=== PATIENT | female | born 1980 | race Caucasian/White ===

== ENCOUNTER 2019-10-27 07:46 | Outpatient (CLI) | payer BC, SELFPAY ==
--- NOTE | ~2019-10-27 | US_ITS ---
US right upper quadrant INDICATION: Right upper quadrant pain, nausea and bloating PROCEDURE: Realtime right upper abdominal ultrasound. COMPARISON: 09/28/2005 FINDINGS: The pancreas is normal without focal mass or pancreatic ductal dilation. Liver echotexture is increased, consistent with fatty infiltration. There is normal directional flow in the portal ve in. The gallbladder is normal without stones, gallbladder wall thickening or pericholecystic fluid. Comm on bile duct measures 3 mm. No sonographic Coe's sign. IMPRESSION: 1: Fatty infiltration of the liver. Reviewed, dictated and finalized at location A.
== END 2019-10-27 07:47 | disposition home or self-care (01) ==
PROVIDERS: PCP Nurse Practitioner Family; Visit Provider Internal Medicine Endocrinology, Diabetes & Metabolism
DX: R10.11 Right upper quadrant pain (principal); R11.0 Nausea; K76.0 Fatty (change of) liver, not elsewhere classified
CPT/HCPCS: 76705

== ENCOUNTER 2019-11-17 08:14 | Outpatient (CLI) | payer BC, SELFPAY ==
--- NOTE | ~2019-11-17 | NM_ITS ---
NM hepatobiliary w pharm DATE: 11/17/2019 13:00 INDICATION: Right upper quadrant abdominal pain TECHNIQUE: Serial images of the abdomen up to 60 minutes after intravenous injection of 4.6 mm 99M te chnetium Choletec. 30 minute gallbladder ejection fraction after intravenous injection of 1.9 mcg Kin evac. COMPARISON: 10/27/2019 right upper quadrant abdominal ultrasound examination FINDINGS: Activity is noted within the gallbladder and bile ducts within 15 minutes. The 30 minute ga llbladder ejection fraction measures 91%. IMPRESSION: Normal examination Reviewed, dictated and finalized at Location A. Reviewed, dictated and finalized at location A. IMPRESSION: Normal examination
== END 2019-11-17 08:15 | disposition home or self-care (01) ==
PROVIDERS: PCP Nurse Practitioner Family; Visit Provider Nurse Practitioner Family
DX: R10.11 Right upper quadrant pain (principal)
CPT/HCPCS: 78227; A9537; J2805

== ENCOUNTER 2021-01-10 17:20 | Outpatient (CLI) | payer BC, SELFPAY ==
--- NOTE | ~2021-01-10 | MM_ITS ---
EXAMINATION: MM screening tamika BI w quintin HISTORY: Screening mammogram TECHNIQUE: Craniocaudal and mediolateral oblique 3-D tomosynthesis images were obtained and synthetic 2-D images were generated. CAD analysis was submitted and interpreted. COMPARISON: 11/18/2018, 10/30/2018 BREAST PARENCHYMAL COMPOSITION: The breasts are heterogeneously dense, which may obscure small masses . FINDINGS: Waxing and waning bilateral breast masses are consistent with cysts. There is no evidence o f suspicious mass, calcification, or architectural distortion to suggest malignancy in either breast. There has been no suspicious interval change. IMPRESSION: 1. No mammographic evidence of malignancy. 2. Recommend routine screening mammography in one year. BI-RADS Category 2: Benign finding(s). Reviewed, dictated and finalized at location A.
== END 2021-01-10 17:21 | disposition home or self-care (01) ==
LOC: ANHIMG 17:24
PROVIDERS: PCP Nurse Practitioner Family; Visit Provider Obstetrics & Gynecology
DX: Z12.31 Encounter for screening mammogram for malignant neoplasm of breast (principal)
CPT/HCPCS: 77063; 77067

== ENCOUNTER → 2021-01-10 17:42 | Outpatient (CLI) | payer BC, SELFPAY ==
--- NOTE | ~2021-01-10 | US_ITS ---
EXAMINATION: US thyroid DATE: 01/10/2021 17:59 INDICATION: Goiter. TECHNIQUE: Multiple ultrasound images of the thyroid were obtained. COMPARISON: Thyroid ultrasound 02/01/2019 FINDINGS: The right thyroid lobe measures 4.2 x 1.1 x 1.1 cm. The left thyroid lobe measures 3.8 x 0.8 x 1.2 c m. There is normal echotexture and echogenicity throughout the thyroid gland. No discrete nodules id entified. Normal vascular flow is present. IMPRESSION: 1. Normal thyroid. Reviewed, dictated and finalized at location A. IMPRESSION: 1. Normal thyroid.
== END ==
PROVIDERS: Visit Provider Internal Medicine Endocrinology, Diabetes & Metabolism
DX: E04.9 Nontoxic goiter, unspecified (principal)
CPT/HCPCS: 76536

== ENCOUNTER 2021-03-31 16:52 | Emergency (ER) | payer BC, SELFPAY ==
[2021-03-31 17:01] VITALS: BP 113/76; PULSE 60; RESP 20; TEMP 36.4; O2SAT 99
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
[2021-03-31 17:50] VITALS: PULSE 60; RESP 20; O2SAT 99
[2021-03-31] MEDS: ALBUTEROL SULFATE NEB 2.5 MG/3 ML INH INHALATION (17:52)
[2021-03-31] MEDS: IPRATROPIUM BR 0.02% INH SOLN 0.5 MG/2.5 ML VIAL INHALATION (17:52)
[2021-03-31 18:20] VITALS: PULSE 74; RESP 19; O2SAT 100
== END 2021-03-31 18:38 | disposition home or self-care (01) ==
PROVIDERS: Emergency Provider Nurse Practitioner; PCP Nurse Practitioner Family
DX: J45.901 Unspecified asthma with (acute) exacerbation (principal); Z87.891 Personal history of nicotine dependence
CPT/HCPCS: 94640; 99214; G0463

== ENCOUNTER → 2021-07-11 01:10 | Outpatient (CLI) | payer BC, SELFPAY ==
[2021-07-11 21:03] LABS: SARS-CoV-2 RNA PCR Negative
== END ==
PROVIDERS: PCP Nurse Practitioner Family; Visit Provider Nurse Practitioner Family
DX: J32.9 Chronic sinusitis, unspecified (principal); Z20.822 Contact with and (suspected) exposure to COVID-19
CPT/HCPCS: C9803; U0003; U0005

== ENCOUNTER 2021-10-15 18:32 | Emergency (ER) | payer BC, SELFPAY ==
--- NOTE | ~2021-10-15 | XR_ITS ---
EXAM: XR abdomen/kub 1V HISTORY: R UVJ stone on CT,RT LOWER BACK PAIN,HX STONES COMPARISON: CT abdomen and pelvis, same date. FINDINGS: Lung bases clear. Normal bowel gas pattern. No organomegaly. Surgical change in the right lower quadrant. Tubal ligation. The previously reported 5 mm right UVJ stone actually appears to repr esent 2 smaller 2 and 3 mm stones that are unchanged in position. IMPRESSION: Stable right UVJ stones. Reviewed, dictated and finalized at location K. IMPRESSION: Stable right UVJ stones.
--- NOTE | ~2021-10-15 | CT_ITS ---
EXAMINATION: CT abdomen pelvis wo con DATE: 10/15/2021 19:54 INDICATION: R flank pain hx of ureteral stone TECHNIQUE: Computed tomography (CT) of the abdomen and pelvis was performed without intravenous contr ast. The dose-length product was 288.60 mGy-cm. COMPARISON: None FINDINGS: Lower thorax: Unremarkable. Liver: Normal. Biliary/Gallbladder: Gallbladder is normal. No bile duct dilation. Spleen: Normal. Pancreas: No mass or duct dilation. Adrenals:No mass. Kidneys: Mild right perirenal and periureteral inflammatory change. Mild right hydronephrosis. Puncta te left midpole nonobstructing calculus. No renal mass. GI tract: No small or large bowel dilation. Appendix not visualized. Mesentery/Peritoneum: No ascites, mass, or free air. Retroperitoneum: No mass. Pelvis: 5 mm stone at the right UVJ. 3.4 cm right ovarian cystic lesion, likely benign cyst at requir es no additional follow-up. Otherwise the pelvic organs are within normal limits. Bones/Soft Tissues: Soft tissues and body wall unremarkable. No acute osseous finding. Additional Findings: None. IMPRESSION: 5 mm right UVJ stone causing mild obstructive uropathy. Reviewed, dictated and finalized at location K.
[2021-10-15 18:32] VITALS: BP 154/96; PULSE 92; RESP 18; TEMP 36.3; O2SAT 99
[2021-10-15 19:22] LABS: Basophils Percent Auto 0.4 % (0.2-1.2); Eosinophils Absolute Auto 0.2 K/mm3 (0-0.3); Eosinophils Percent Auto 2.2 % (0-4.4); Hematocrit 36.6 % (37.0-47.0); Hemoglobin 11.7 g/dL (12.0-15.0); Immature Granulocyte Absolute 0.02 K/mm3 (0.00-0.031); Immature Granulocyte Percent A 0.3 % (0-0.5); Lymphocytes Absolute Auto 1.85 K/mm3 (0.9-3.2); Lymphocytes Percent Auto 25.9 % (18.3-44.2); Mean Corpuscular Hemoglobin 28.7 pg (26-34); Mean Corpuscular Volume 89.7 fl (80-100); Mean Platelet Volume 10.5 fl (7.4-10.4); Monocytes Absolute Auto 0.6 K/mm3 (0.1-0.6); Neutrophils Absolute Auto 4.5 K/mm3 (1.3-6.7); Neutrophils Percent Auto 63.2 % (45.5-73.1); Platelet Count Result 245 k/mm3 (150-375); Red Blood Count 4.08 M/mm3 (4.2-5.4); Red Cell Distribution Width 13.6 % (11.5-14.5); White Blood Count 7.2 K/mm3 (4.5-10.0)
--- NOTE | 2021-10-15 19:22 | PC.NURSE ---
Report received from Tiffanie RN and care of pt assumed at this time.
[2021-10-15 19:23] VITALS: BP 128/93; PULSE 83; RESP 16; O2SAT 100
[2021-10-15 19:23] LABS: Appearance Urine Cloudy (Clear); Bilirubin Urine Negative (Negative); Blood Urine 1+ (Negative); Color Urine Yellow (Yellow); Glucose Urine UA Negative (Negative); Ketones Urine Negative (Negative); Leukocyte Esterase Ur Negative LEU/UL (Negative); Nitrate Urine Negative (Negative); Protein Urine Trace mg/dL (Negative); Specific Grav Ur 1.025 (1.001-1.035)
[2021-10-15 19:28] LABS: Add Urine Microscopic? YES; Bacteria Urine Trace /hpf; Mucus Urine Rare /lpf; RBC Urine 21-50 /hpf (0-2); Squamous Epithelial Cell Urine Many /hpf (Few); WBC Urine 0-3 /hpf
--- NOTE | 2021-10-15 19:29 | ED.FEMALEGU ---
HPI - Female Genitourinary General Chief complaint: Urogenital-Female Stated complaint: possible kidney stones Time Seen by Provider: 10/15/21 18:42 Source: patient History of Present Illness HPI Narrative: Patient presents with concern for kidney stone. Patient ports a history of kidney stone which was passed with assistance of a stent approximately 20 years ago. Yesterday she noted right-sided back pain which was rating to her abdomen she is now having increasing pressure and her pelvis. She also reports urinary urgency but is unable to urinate. Denies any pain with urination or increased urinary frequency. There are no clear aggravating or alleviating factors for her symptoms. She denies any fevers. Related Data Home Medications Medication Instructions Recorded Confirmed Claritin 10 mg PO HS 05/26/19 Praluent Pen 150 mg PO MONTHLY 05/26/19 albuterol sulfate [ProAir HFA] 2 inh INHALATION PRN PRN 05/26/19 03/31/21 cholecalciferol (vitamin D3) 1,000 unit PO HS 05/26/19 03/31/21 [Vitamin D3] citalopram [Celexa] 40 mg PO HS 05/26/19 03/31/21 lisinopril 2.5 mg PO HS 05/26/19 03/31/21 metformin 500 mg PO HS 05/26/19 03/31/21 omega 5-tjc-dfx-fish oil [Fish Oil] 1,400 cap PO HS 05/26/19 03/31/21 topiramate [Topamax] 25 mg PO HS 05/26/19 03/31/21 zolpidem [Ambien] 10 mg PO HS 05/26/19 03/31/21 buspirone mg 03/31/21 erenumab-aooe [Aimovig 140 mg SUBCUT DIRECTED 03/31/21 03/31/21 Autoinjector] pantoprazole 40 mg PO DAILY 03/31/21 03/31/21 spironolactone 50 mg PO DAILY 03/31/21 03/31/21 valacyclovir 500 mg PO DIRECTED 03/31/21 03/31/21 Allergies Allergy/AdvReac Type Severity Reaction Status Date / Time codeine Allergy Intermediate Vomiting Verified 10/15/21 19:24 hydrocodone Allergy Intermediate Vomiting Verified 10/15/21 19:24 Sulfa (Sulfonamide Allergy Mild Hives Verified 10/15/21 19:24 Antibiotics) sulfanilamide Allergy Unknown Hives Verified 10/15/21 19:24 Review of Systems Review of Systems: CONSTITUTIONAL: Denies fever, chills, or sweats. EYES: Denies visual changes, redness, or discharge. ENT: Denies rhinorrhea, congestion, sore throat, or otalgia. CARDIOVASCULAR: Denies chest pain, palpitations, or edema. RESPIRATORY: Denies cough or dyspnea. GASTROINTESTINAL: Denies nausea, vomiting, or diarrhea. GENITOURINARY: Denies dysuria or hematuria. SKIN: Denies rash or itching. MUSCULOSKELETAL: Denies joint pain, or myalgia. NEUROLOGIC: Denies headache, numbness, dizziness, or weakness. PSYCHIATRIC: Denies anxiety or depression. All systems reviewed & are unremarkable except as noted in HPI and below PMFSH Past Medical History Medical History Asthma Environmental allergies Family History Family History Father Family history of elevated blood lipids Mother Family history of elevated blood lipids Other Diabetes mellitus Family history of congestive heart failure Family history of lung cancer Family history of malignant neoplasm of urinary bladder Family history of thyroid disease Social History Social History Smoking status: Former smoker Smoking end date: 07/01/08 Alcohol intake: current Exam Narrative: GENERAL: Well-appearing, well-nourished, and in no acute distress. HEAD: Normocephalic, atraumatic. EYES: PERRLA and EOMI. ENT: Nares clear, no rhinorrhea or epistaxis. Mucous membranes moist. NECK: Supple. No masses. No JVD ABDOMEN: Soft, nontender, nondistended EXTREMITIES: Normal range of motion. No edema. SKIN: Warm, dry, no rash. NEURO: No focal deficits. Alert and oriented x3. PSYCH: Normal mood and affect. Course Reevaluation(s) Reevaluation #1: Discussed with urology who will assist with outpatient valuation of the patient. Results and plan reviewed with patient. Patient is comfortable with the outpat
[2021-10-15 19:31] LABS: Alanine Aminotransferase 21 U/L (4-35); Albumin Level 4.2 g/dL (3.5-5.1); Alkaline Phosphatase 63 U/L (38-126); Anion Gap 9 mmol/L (8-16); Aspartate Amino Transferase 28 U/L (14-36); Bilirubin,Total 0.4 mg/dL (0.2-1.3); Blood Urea Nitrogen 13 mg/dL (7-17); Carbon Dioxide 27 mmol/L (22-30); Chloride 104 mmol/L (98-107); Estimated CRCL calculation 53 ml/min; Estimated Glomerular Filt Rate 49; Glucose 122 mg/dL (65-110); Potassium 3.8 mmol/L (3.4-5.0); Sodium 140 mmol/L (137-145)
[2021-10-15 19:35] LABS: Urine Pregnancy Test Negative
[2021-10-15 19:36] LABS: Pregnancy On Board Control Positive
--- NOTE | 2021-10-15 19:46 | PC.NURSE ---
BELL received from Dr. Burris for PO Tylenol instead of IV.
[2021-10-15] MEDS: ACETAMINOPHEN 500 MG TABLET 1000 MG PO (19:58)
[2021-10-15] MEDS: KETOROLAC 30 MG/ML VIAL (*BKC) IM (21:04)
== END 2021-10-15 21:08 | disposition home or self-care (01) ==
PROVIDERS: Emergency Provider Emergency Medicine; PCP Nurse Practitioner Family
DX: N13.9 Obstructive and reflux uropathy, unspecified (principal); N20.1 Calculus of ureter; J45.909 Unspecified asthma, uncomplicated; Z79.84 Long term (current) use of oral hypoglycemic drugs; Z87.891 Personal history of nicotine dependence
CPT/HCPCS: 36415; 74018; 74176; 80053; 81001; 81025; 85025; 96372; 99284; A9270; J1885

== ENCOUNTER → 2021-10-20 13:59 | Outpatient (CLI) | payer BC, SELFPAY ==
--- NOTE | ~2021-10-20 | XR_ITS ---
EXAMINATION: XR abdomen/kub 1V INDICATION: Right ureteral stone TECHNIQUE: Supine views of the abdomen were obtained on 2 radiographs. COMPARISON: 10/15/2021 FINDINGS: The previously described right ureterovesicular junction stone is no longer identified. No urolithiasis is seen. The bowel gas pattern is normal. The visualized lung bases are clear. IMPRESSION: 1. Interval treatment or passage of the previously described right ureterovesicular junction stones. Reviewed, dictated and finalized at location F. IMPRESSION: 1. Interval treatment or passage of the previously described right ureterovesic ular junction stones.
== END ==
PROVIDERS: PCP Urology; Visit Provider Urology
DX: N20.1 Calculus of ureter (principal)
CPT/HCPCS: 74018

== ENCOUNTER 2021-11-30 08:09 | Outpatient (CLI) | payer BC, SELFPAY ==
--- NOTE | ~2021-11-30 | US_ITS ---
US retroperitoneal comp 11/30/2021 08:47 Procedure: Realtime transabdominal ultrasound of the kidneys and bladder. Indication: Right ureteral stone Comparison: KUB dated 10/20/2021 Findings: Renal echotexture is normal bilaterally without hydronephrosis, contour deforming mass or r enal calculus. The right kidney measures 10.6 cm and left kidney measures 10.3 cm. Bladder within no rmal limits. Impression: 1: Unremarkable renal ultrasound. No stones, masses or hydronephrosis. Reviewed, dictated and finalized at location A. Impression: 1: Unremarkable renal ultrasound. No stones, masses or hydronephrosis.
== END 2021-11-30 08:10 | disposition home or self-care (01) ==
PROVIDERS: PCP Urology; Visit Provider Urology
DX: N20.1 Calculus of ureter (principal)
CPT/HCPCS: 76770

== ENCOUNTER 2022-01-31 08:08 | Outpatient (CLI) | payer BC, SELFPAY ==
--- NOTE | ~2022-01-31 | MM_ITS ---
EXAMINATION: MM screening tamika BI w quintin HISTORY: Screening TECHNIQUE: Craniocaudal and mediolateral oblique 3-D tomosynthesis images were obtained and synthetic 2-D images were generated. CAD analysis was submitted and interpreted. COMPARISON: Comparison to multiple prior studies sequentially, with oldest reviewed study dated 08/2018. BREAST PARENCHYMAL COMPOSITION: The breasts are heterogenously dense, which may obscure small masses FINDINGS: There are developing asymmetries in the upper outer quadrant of the left breast which are o bscured by dense fibroglandular tissue. The right breast is stable without evidence for malignancy. IMPRESSION: 1. Developing left breast asymmetries. 2. Additional mammographic views and possible breast ultrasound are recommended. BI-RADS Category 0: Incomplete: Needs additional imaging evaluation. Reviewed, dictated and finalized at location A. IMPRESSION: 1. Developing left breast asymmetries. 2. Additional mammographic views and possible breast ultrasound are recommended . BI-RADS Category 0: Incomplete: Needs additional imaging evaluation.
== END 2022-01-31 08:09 | disposition home or self-care (01) ==
PROVIDERS: PCP Nurse Practitioner Family; Visit Provider Pediatrics
DX: Z12.31 Encounter for screening mammogram for malignant neoplasm of breast (principal); R92.8 Other abnormal and inconclusive findings on diagnostic imaging of breast
CPT/HCPCS: 77063; 77067

== ENCOUNTER → 2022-02-14 08:45 | Outpatient (CLI) | payer BC, SELFPAY ==
--- NOTE | ~2022-02-14 | MMUS_ITS ---
EXAMINATION: MM diagnostic tamika LT w quintin, US breast LT limited HISTORY: Developing left upper outer quadrant mammographic asymmetry is reported on 01/31/2022 screenin g mammogram examination TECHNIQUE: Additional 3-D tomosynthesis images of the left breast were performed and synthetic 2-D im ages were generated. CAD analysis was submitted and interpreted. High resolution breast ultrasound wa s performed. COMPARISON: None FINDINGS: MAMMOGRAPHIC FINDINGS: Occasional low-density circumscribed benign-appearing 1 cm smaller masses are noted. Due to heterogen eously dense stroma of the breasts small masses cannot be excluded. No apparent suspicious mass or ar chitectural distortion, malignant calcification, skin thickening or retraction is evident. ULTRASOUND: No suspicious solid lesion or shadowing is evident. 12:00 2.5 cm from nipple: 2.4 x 4.3 mm circumscribed sonolucency consistent with small cyst 1:00 6 cm from nipple: 4.7 x 3.3 mm sonolucency with through transmission consistent with simple cyst 1:00 6 cm from nipple: Parallel circumscribed sonolucency measuring 4.3 x 10 mm, consistent with cyst 2:00 7 cm from nipple: 9 x 12 mm circumscribed hypoechoic lesion without internal vascularity or susp icious shadowing, probably benign 2:00 7 cm from nipple: 3.5 x 6.3 mm circumscribed parallel benign-appearing lesion 2:00 7 cm from nipple: Parallel circumscribed sonolucency measuring 2.5 x 6.8 x 8.3 mm, consistent wi th simple cyst 2:00 5 cm from nipple: Parallel circumscribed 5.8 x 9.8 x 9.5 mm hypoechoic lesion without internal v ascularity or posterior shadowing, benign in appearance 3:00 5 cm from nipple: 3.2 x 4.8 mm cyst 4:00 3 cm from nipple: Parallel circumscribed 3.8 x 5.5 mm hypoechoic lesion without internal vascula rity or suspicious shadowing, benign in appearance IMPRESSION: 1. Probable benign findings 2. 6 month left breast ultrasound follow-up is recommended BI-RADS category 3, probably benign findings. Reviewed, dictated and finalized at location A. IMPRESSION: 1. Probable benign findings 2. 6 month left breast ultrasound follow-up is recommended BI-RADS category 3, probably benign findings.
== END ==
PROVIDERS: PCP Obstetrics & Gynecology; Visit Provider Obstetrics & Gynecology
DX: R92.8 Other abnormal and inconclusive findings on diagnostic imaging of breast (principal); N60.02 Solitary cyst of left breast; N63.21 Unspecified lump in the left breast, upper outer quadrant
CPT/HCPCS: 76642; 77061; 77065; G0279

== ENCOUNTER → 2022-08-16 07:37 | Outpatient (CLI) | payer BC, SELFPAY ==
--- NOTE | ~2022-08-16 | US_ITS ---
US breast LT limited DATE: 08/16/2022 08:44 INDICATION: Six-month follow-up of probable benign findings TECHNIQUE: Real-time imaging and color flow imaging of upper outer and lower-outer quadrants of left breast COMPARISON: 02/14/2022 Limited left breast ultrasound FINDINGS: 12:00 2.5 cm from nipple prior to 0.4 x 4.3 mm cyst has resolved since 02/14/2022. 1:00 6 cm from nipple: Circumscribed sonolucency with single septation measuring 6 x 11 x 13 x 5 mm, consistent with benign septated cyst 2:00 7 cm from nipple: 4.7 x 11 x 6 mm multi septated cyst circumscribed cyst or transmission, with n o internal vascularity 2:00 7 cm from nipple: Circumscribed 8 x 13 x 9 mm sonolucency without internal vascularity or blind teacher ior shadowing, consistent with simple cyst 2:00 5 cm from nipple: Parallel circumscribed sonolucency measuring 2.6 x 7.4 x 9 mm, consistent with small cyst 2:00 5 cm from nipple: 5 x 9 x 8.4 mm circumscribed hypoechoic lesion without internal vascularity or posterior shadowing, benign in appearance 3:00 6 cm from nipple: Parallel circumscribed oval 5 x 8.3 x 10 mm multi septated cyst with through t ransmission posterior enhancement, no internal vascularity, benign in appearance 3:00 6 cm from nipple: 2 x 3.8 mm sonolucency with through transmission consistent with small cyst 4:00 3 cm from nipple: Parallel circumscribed 2.6 x 5.7 x 5.2 mm hypoechoic lesion without internal v ascularity or posterior shadowing, benign in appearance IMPRESSION: BI-RADS Category 2: Benign findings Recommendation: Routine annual mammographic screening Reviewed, dictated and finalized at Location A. Reviewed, dictated and finalized at location A. [employer]
== END ==
PROVIDERS: PCP Nurse Practitioner Family; Visit Provider Obstetrics & Gynecology
DX: R92.8 Other abnormal and inconclusive findings on diagnostic imaging of breast (principal)
CPT/HCPCS: 76642

== ENCOUNTER 2024-04-06 08:14 | Emergency (ER) | payer BC, SELFPAY ==
--- NOTE | 2024-04-06 08:18 | ED.HA ---
HPI - Headache General Chief Complaint: Headache Stated Complaint: Headache Time Seen by Provider: 04/06/24 08:17 Source: patient Mode of arrival: ambulatory Limitations: no limitations History of Present Illness HPI Narrative: Sara is a 44-year-old female patient presenting to the clinic today with complaints of a migraine headache x1 day. She reports that she took her migraine medicine yesterday and that did not relieve her headache. She is reporting associated photosensitivity and nausea with vomiting. Has vomited 6 times. States the pain is all over head and throbbing. Currently rates her pain 10/10. Not taken any medications this morning for her migraine headache. History of migraine headaches in the past. Denies any visual changes, chest pain, shortness of breath, or dizziness. Related Data Home Medications Medication Instructions Recorded Confirmed Claritin 10 mg PO HS 05/26/19 Praluent Pen 150 mg PO MONTHLY 05/26/19 albuterol sulfate 90 mcg/actuation 2 inh inhalation PRN PRN Shortness 05/26/19 03/31/21 aerosol inhaler (ProAir HFA) Of Breath cholecalciferol (vitamin D3) 25 1,000 unit PO HS 05/26/19 03/31/21 mcg (1,000 unit) capsule (Vitamin D3) citalopram 40 mg tablet (Celexa) 40 mg PO HS 05/26/19 03/31/21 lisinopril 2.5 mg tablet 2.5 mg PO HS 05/26/19 03/31/21 metformin 500 mg tablet 500 mg PO HS 05/26/19 03/31/21 omega 4-wwb-cyh-fish oil 900 1,400 cap PO HS 05/26/19 03/31/21 mg-1,400 mg capsule,delayed release (Fish Oil) topiramate 25 mg tablet (Topamax) 25 mg PO HS 05/26/19 03/31/21 zolpidem 10 mg tablet (Ambien) 10 mg PO HS 05/26/19 03/31/21 buspirone 10 mg tablet 10 mg PO DAILY 03/31/21 04/06/24 erenumab-aooe 140 mg/mL 140 mg subcut DIRECTED 03/31/21 03/31/21 subcutaneous auto-injector (Aimovig Autoinjector) pantoprazole 40 mg tablet,delayed 40 mg PO DAILY 03/31/21 03/31/21 release spironolactone 50 mg tablet 50 mg PO DAILY 03/31/21 03/31/21 valacyclovir 500 mg tablet 500 mg PO DIRECTED 03/31/21 03/31/21 Allergies Allergy/AdvReac Type Severity Reaction Status Date / Time codeine Allergy Intermediate Vomiting Verified 04/06/24 08:42 hydrocodone Allergy Intermediate Vomiting Verified 04/06/24 08:42 Sulfa (Sulfonamide Allergy Mild Hives Verified 04/06/24 08:42 Antibiotics) sulfanilamide Allergy Unknown Hives Verified 04/06/24 08:42 Review of Systems Review of Systems: Pertinent positives per HPI. Patient denies any fever, chills, rash,visual changes, dizziness, cough, runny nose, sore throat, shortness of breath, chest pain, palpitations, diarrhea, constipation, abdominal pain, or any urinary issues. [facility] Past Medical History Medical History Asthma Environmental allergies Family History Family History Father Family history of elevated blood lipids Mother Family history of elevated blood lipids Other Diabetes mellitus Family history of congestive heart failure Family history of lung cancer Family history of malignant neoplasm of urinary bladder Family history of thyroid disease Social History Social History Smoking status: Former smoker Smoking end date: 07/01/08 Alcohol intake: current Comments At the time of my signature, I reviewed and agree with the nursing past medical, surgical, social, and family history. There is no relevant family history pertinent to the patient complaint. Exam Narrative: General: Well-developed, well nourished, in no apparent distress Head: Normocephalic, atraumatic Eyes: Pupils equally round and reactive to light bilaterally, EOM intact, sclera and conjunctive clear, no discharge, lids normal Ears: TMs intact and clear, ear canals clear, no drainage, grossly hearing normal. Nose: Nares patent, no discharge, no inflammation, no sinus
[2024-04-06 08:23] VITALS: BP 129/90; PULSE 89; RESP 19; TEMP 36.3; O2SAT 99
[2024-04-06] MEDS: ONDANSETRON HCL ODT 4 MG TABLET SUBLINGUAL (08:53)
[2024-04-06] MEDS: diphenhydrAMINE HCl INJ 50 MG/ML VIAL IM (08:55)
[2024-04-06] MEDS: KETOROLAC (*BKC) 60 MG/2 ML VIAL IM (08:55)
== END 2024-04-06 09:15 | disposition home or self-care (01) ==
PROVIDERS: Emergency Provider Nurse Practitioner Family; PCP Nurse Practitioner Family
DX: G43.909 Migraine, unspecified, not intractable, without status migrainosus (principal); J45.909 Unspecified asthma, uncomplicated; Z87.891 Personal history of nicotine dependence
CPT/HCPCS: 96372; 99214; A9270; G0463; J1200; J1885

== ENCOUNTER 2024-08-04 15:50 | Outpatient (CLI) | payer BC, SELFPAY ==
--- NOTE | ~2024-08-04 | MM_ITS ---
EXAMINATION: MM screening tamika BI w quintin HISTORY: Screening TECHNIQUE: Craniocaudal and mediolateral oblique 3-D tomosynthesis images were obtained and synthetic 2-D images were generated. CAD analysis was submitted and interpreted. COMPARISON: Comparison to multiple prior studies sequentially, with oldest reviewed study dated 08/2018. BREAST PARENCHYMAL COMPOSITION: Dense: The breasts are heterogeneously dense, which may obscure small masses FINDINGS: There is no evidence of suspicious mass, calcification, or architectural distortion to sugg est malignancy in either breast. There has been no suspicious interval change. IMPRESSION: 1. No mammographic evidence of malignancy. 2. Recommend routine screening mammography in one year. BI-RADS Category 1: Negative Reviewed, dictated and finalized at location B. E PAINTER
--- OUTSIDE RECORDS SUMMARY | 2024-08-04 15:54 | XMS_ITS | Clinical Summary ---
Author Organization [facility] [address] [place] [id number] Care Team Providers Care Burnisher Name Role Phone Ivette Pearce NP Primary Care Provider Allergies Active Allergy Reactions Criticality Noted Date Comments Hydrocodone Nausea & Vomiting,Vomiting Low 08/17/2019 Fouuzak-Pnu-Ttw Reductase Inhibitors Other (See comments) High 10/31/2016 Tongue swelled, disorientated for 24 hours Sulfa (Sulfonamide Antibiotics) Rash Medium 03/08/2021 Medications atenoloL (TENORMIN) 25 mg tablet Take 0.5 tablets by mouth daily 9 Active ondansetron (ZOFRAN) 4 mg tablet Active lisinopriL (PRINIVIL,ZEST RIL) 2.5 mg tablet Take 2.5 mg by mouth daily 1 Active citalopram (CeleXA) 40 mg tablet Take 40 mg by mouth daily 1 Active albuterol HFA (PROVENTIL HFA,VENTOLIN HFA,PROAIR HFA) 90 mcg/actuation inhaler albuterol sulfate HFA 90 mcg/actuation aerosol inhaler Active fluticasone propionate (FLONASE) 50 mcg/actuation nasal spray fluticasone propionate 50 mcg/actuation nasal spray,suspension Active evolocumab (Repatha SureClick) 140 mg/mL pen injector Repatha SureClick 140 mg/mL subcutaneous pen injector INJECT 1 ML SUBCUTANEOUSLY EVERY TWO WEEKS IN THE EVENING Active pantoprazole DR (PROTONIX) 40 mg EC tablet 1 Active spironolactone (ALDACTONE) 50 mg tablet Take 100 mg by mouth daily 1 Active cholecalcifero l (VITAMIN D-3) 2000 unit capsule 2,000 Units Active ibuprofen (ADVIL,MOTRIN) 200 mg tab/cap Take by mouth every 6 (six) hours as needed for pain Active cetirizine (ZyrTEC) 10 mg tablet Take 10 mg by mouth daily Active guaiFENesin ER (MUCINEX) 600 mg 12 hr tablet Take 1,200 mg by mouth 2 (two) times a day Active busPIRone (BUSPAR) 10 mg tablet 1 Active Ozempic 0.25 mg or 0.5 mg(2 mg/1.5 mL) pen injector injection 1 Active metFORMIN XR (GLUCOPHAGE XR) 500 mg 24 hr tablet 1 Active valACYclovir (VALTREX) 500 mg tablet 1 Active icosapent ethyL (VASCEPA) 1 gram capsule 1 Active erenumab-aooe (Aimovig Autoinjector) 140 mg/mL auto-injector Inject 140 mg under the skin every 30 (thirty) days 1 mL 5 2 Active rimegepant (Nurtec ODT) tablet,disinte gratingIndicat ions:Migraine Take 1 tablet (75 mg total) by mouth once as needed (migraine) for up to 1 dose 8 tablet 5 2 Active zolpidem (AMBIEN) 10 mg tablet 2 Active Active Problems No known active problems Surgical History Surgery Date Site/Laterality Comments TONSILLECTOMY SECTION TUBAL LIGATION ENDOMETRIAL ABLATION APPENDECTOMY RHINOPLASTY BUNIONECTOMY Medical History Medical History Date Comments Hypertension Hypercholesterolemia Migraine headache Insomnia Anxiety Depression Baldev's disease PCOS (polycystic ovarian syndrome) GERD (gastroesophageal reflux disease) Fatty liver Thyroid nodule Family History Medical History Relation Name Comments Diabetes Maternal Grandfather Aneurysm Maternal Grandmother Stroke Maternal Grandmother Hypertension Mother Diabetes Paternal Grandmother Relation Name Status Comments Maternal Grandfather Maternal Grandmother Mother Paternal Grandmother Social History Tobacco Use Types Packs/Day Years Used Date Smoking Tobacco: Former Tobacco Cessation:Counseling Given: Not Answered Alcohol Use Standard Drinks/Week Comments Yes 0 (1 standard drink = 0.6 oz pur e alcohol) Occasional AUDIT-C Answer Date Recorded Q1: How often do you have a drink containing alc ohol? Monthly or less 03/08/2021 Average Number of Drinks Not on file 021 Frequency of Binge Drinking Not on file 01/2021 Personal Safety Answer Date Recorded Have you ever been in or are you currently in a harmful physical or emotional relationship or is someone making you feel afraid or unsafe? Denies 05/21/2023 Comments Unknown Sex and Gender Information Value Date Recorded Sex Assigned at Not on file Legal Sex Female 12:48 PM OUTCOMES SPECIALIST Gender Identity Female 03/08/2021 8:54 AM CDT Sexual Orientation Not on file Obstetrics History Last Filed Vital Signs Vital Sign Reading Time Taken Comments Blood Pressure 112/84 05/21/2023 2:30 PM OUTCOMES SPECIALIST Pulse 94 05/21/2023 2:30 PM OUTCOMES SPECIALIST Temperature - - Respiratory Rate 14 05/21/2023 2:30 PM OUTCOMES SPECIALIST Oxygen Saturation 97% 05/21/2023 2:30 PM OUTCOMES SPECIALIST Inhaled Oxygen Concentration - - Weight 77.8 kg (171 lb 8.3 oz) 01/29/2022 2:39 P M CDT Height 160 cm (5' 3 ) 01/29/2022 2:39 PM CDT Body Mass Index 30.38 01/29/2022 2:39 PM CDT Plan of Treatment Health Maintenance Due Date Last Done Comments Breast Cancer Screening-Mammogram 1978 Cervical Cancer Screening 1978 Colon Cancer Screening-Colonoscopy 1978 Depression Screening 1978 Hepatitis C Screening 1978 Hepatitis B Screening 1996 Regular Well Visit/Exam 18-64 1996 Covid-19 Vaccine ( season) 2024 06/02/2021, 05/05/2021 Influenza Vaccine (#1) 2024 2, 04/10/2021, 04/11/2020, Additional history exists DTaP/Tdap/Td Vaccine (4 - Td or Tdap) 05/11/2032 05/11/2022, 07/01/2011, 07/01/2011 Pneumococcal vaccine <65 (3 of 3 - PPSV23 or PCV20) 2043 03/14/2022, 10/28/2020, 05/09/2019 HPV Vaccines Aged Out No longer eligi ble based on patient's age to complete this topic Insurance [id number] CHOICE [employer]OS CHOICE [place] [address] CHOICE PLUS Member Subscriber Plan / Payer (Ef fective 2022-Present) Name:Sara Verduzco Relation to Subscriber:Self Name:Sara Verduzco Payer ID:[id number] (NAIC) Type:[facility] HMO/PPO Address: [place] [phone] Care Teams Burnisher Relationship Specialty Start Date End Date Ivette Pearce NP [facility] [place], [place] [id number] PCP - General Nurse Practitioner 12/16/20
--- OUTSIDE RECORDS SUMMARY | 2024-08-04 15:54 | XMS_ITS | Clinical Summary ---
Author Organization [facility] [employer] Address [address] [facility] [place] [address] Care Team Providers Care Informatics Educator Name Role Phone Reji Watkins MD Primary Care Provider [phone] Source Comments [facility] [employer],non-owned Affiliates and Associated Physician Practices is amultiple site organization consisting of ambulatory clinics and hospital sitesin [place], [place], [place] and [place]. This disclosure is being madepursuant to the Care Everywhere program and may not contain all information available regarding this patient. Last updated 18.[facility] [employer] Allergies Active Allergy Reactions Criticality Noted Date Comments Hydrocodone Nausea and/or Vomiting 02/17/2020 Hmg-Coa-R Inhibitors Swelling 02/17/2020 Sulfa Drugs 08/29/2016 Medications * Be aware that medications may not be up to date on this document. Alwaysverify current medications with the patient. Medication Sig Dispensed Refills Start Date End Date Status BusPIRone HCl (BUSPAR PO) Active Citalopram Hydrobromide (CELEXA PO) Active LISINOPRIL PO Active albuterol HFA (PROVENTIL;VENTOLI N;PROAIR) 108 (90 BASE) MCG/ACT inhalerIndications :Acute URI Inhale 2 Puffs by mouth every 6 hours as needed 1 Inhaler 08/29/2016 Active ATENOLOL PO Active Zolpidem Tartrate (ZOLPIDEM PO) Active alirocumab (PRALUENT) 150 MG/ML injection Inject 150 mg subcutaneously every 14 days Active Multiple Vitamins-Minerals (MULTI VITAMIN/MINERALS) TABS Take 1 tablet by mouth once daily Active topiramate (TOPAMAX) 25 MG tablet Take 25 mg by mouth once daily 10/05/2019 Active ondansetron, disintegrating, (ZOFRAN ODT) 4 MG tablet Take 4 mg by mouth every 4 hours as needed 05/15/2019 Active valACYclovir (VALTREX) 500 MG tablet Take 1 tablet by mouth twice daily 12/01/2019 Active vitamin D (CHOLECACIFEROL) 125 MCG (5000 UT) capsule Take 1 capsule by mouth once daily Active cetirizine (ZYRTEC) 10 MG tablet Take 10 mg by mouth once daily Active famotidine (PEPCID) 20 MG tablet Take 20 mg by mouth 2 times daily Active Active Problems Problem Noted Date Diagnosed Date Hyperthyroidism 06/04/2013 Thyroiditis 06/04/2013 Family History Medical History Relation Name Comments Hyperlipidemia Father None Known Mother Relation Name Status Comments Father Mother Social History Tobacco Use Types Packs/Day Years Used Date Smoking Tobacco: Former Cigarettes Q uit: 2009 Smokeless Tobacco: Never Tobacco Cessation:Counseling Given: Yes Sex and Gender Information Value Date Recorded Sex Assigned at Not on file Gender Identity Not on file Sexual Orientation Not on file Last Filed Vital Signs Vital Sign Reading Time Taken Comments Blood Pressure 118/62 07/25/2020 6:11 PM DIRECTOR OF OUTREACH Pulse 78 07/25/2020 6:11 PM DIRECTOR OF OUTREACH Temperature 36.9 ??C (98.5 ??F) 07/25/2020 6:11 PM CS T Respiratory Rate 20 07/25/2020 6:11 PM DIRECTOR OF OUTREACH Oxygen Saturation 98% 02/17/2020 11:39 AM CDT Inhaled Oxygen Concentration - - Weight 84.4 kg (186 lb) 02/17/2020 11:39 AM CDT Height 160 cm (5' 3 ) 02/17/2020 11:39 AM CDT Body Mass Index 32.95 02/17/2020 11:39 AM CDT Plan of Treatment Health Maintenance Due Date Last Done Comments COLOGUARD (AGES 45-75) - COLON CA SCREENING 1978 COLON MONITORING 1978 COLONOSCOPY - COLON CA SCREENING 1978 CT COLONOGRAPHY - COLON CA SCREENING 1978 Colorectal Cancer Screening 1978 FIT - COLON CA SCREENING 1978 FLEX SIG - COLON CA SCREENING 1978 LIPID TESTING 1978 MAMMOGRAM 1978 PAP SMEAR 1978 HIV SCREENING 1993 HEPATITIS C SCREENING 03/15/1996 DTAP/TDAP/TD VACCINES (1 - Tdap) 1997 HEPATITIS B VACCINE (1 of 3 - 19+ 3-dose series) 1997 SCREENING FOR DIABETES 02/17/2020 COVID-19 VACCINE (1 - 2023- season) 2024 INFLUENZA VACCINE (#1) 2024 0, 06/22/2018, 06/17/2018, Additional history exists DEPRESSION SCREENING 07/01/2024 ZOSTER VACCINE (1 of 2) 2028 HIB VACCINE Aged Out No longer eligi ble based on patient's age to complete this topic HPV VACCINE Aged Out No longer eligi ble based on patient's age to complete this topic MENINGOCOCCAL (Group B) VACCINE Aged Out No longer eligible based on patient's age to complete this topic MENINGOCOCCAL VACCINE Aged Out No coco gloria eligible based on patient's age to complete this topic PNEUMOCOCCAL VACCINE Aged Out No long er eligible based on patient's age to complete this topic Care Teams Informatics Educator Relationship Specialty Start Date End Date Reji Watkins MD [address] [place] [address] PCP - General Family Medicine 08/29/16
--- OUTSIDE RECORDS SUMMARY | 2024-08-04 15:54 | XMS_ITS | Clinical Summary ---
Author Organization [facility] Address [address] [place] [address] Care Team Providers Care Legal Instruments Examiner Name Role Phone Ivette Pearce GIUSEPPE Primary Care Provider [phone] Allergies Active Allergy Reactions Criticality Noted Date Comments Hydrocodone Nausea and Vomiting,Vomiting Low 08/17/2019 Statins Swelling,Other (see comment) High 10/31/2016 Tongue swelled, disorientated for 24 hours Sulfa Antibiotics Rash Medium 08/29/2016 Medications cetirizine 10 MG tablet Take 1 tablet (10 mg total) by mouth daily. Active Cholecalciferol 50 MCG (2000 UT) Cap 2,000 Units. Active albuterol (2.5 MG/3ML) 0.083% nebulizer solutionIndicatio ns:Mild intermittent asthma without complication (HHS/HCC) Take 3 mLs (2.5 mg total) by nebulization every 4 (four) hours as needed for Wheezing. 360 mL 2 021 Active NEBULIZER DEVICE, DME,Indications:M ild intermittent asthma without complication (HHS/HCC) Take 1 Device by nebulization every 4 (four) hours as needed. 1 Device 021 Active VITAMIN E COMPLEX OR vitamin E Active ondansetron 4 MG disintegrating tabletIndications :Nausea Take 1 tablet (4 mg total) by mouth every 4 (four) hours as needed for Nausea. 30 tablet 022 Active hydroCHLOROthiazi de (MICROZIDE) 12.5 MG capsuleIndication s:Localized swelling of both lower legs Take 1 capsule (12.5 mg total) by mouth every morning. 90 capsule 1 023 Active Glucose Blood (ONETOUCH VERIO) test stripIndications: Type 2 diabetes mellitus without complication, without long-term current use of insulin ([facility]) 1 strip by Other route as needed. Use to check blood glucose daily 100 strip 3 024 Active Blood Glucose Monitoring Suppl (KetsuTOUCH VERIO) w/Device KitIndications:Ty pe 2 diabetes mellitus without complication, without long-term current use of insulin ([facility]) Use to check blood glucose daily 1 kit Active rimegepant (NURTEC) 75 MG disintegrating tabletIndications :Chronic migraine without aura without status migrainosus, not intractable Take 1 tablet (75 mg total) by mouth every other day. Max of 1 tablets (75 mg) in a 24 hour period. 16 tablet 11 Active metFORMIN ER (GLUCOPHAGE-XR) 500 MG 24 hr tabletIndications :Uncontrolled type 2 diabetes mellitus with hyperglycemia ([facility]) Take 2 tablets (1,000 mg total) by mouth daily. 60 tablet 11 024 Active busPIRone (BUSPAR) 10 MG tabletIndications :Depression with anxiety Take 2 tablets (20 mg total) by mouth 3 (three) times daily. 240 tablet Active UNITHROID 25 MCG tabletIndications :Viral thyroiditis,Acqui red hypothyroidism Take 1 tablet (25 mcg total) by mouth every morning. 90 tablet 3 024 Active valACYclovir (VALTREX) 500 MG tabletIndications :Recurrent cold sores Take 1 tablet by mouth twice daily 30 tablet Active evolocumab (REPATHA SURECLICK) 140 MG/ML injection (PEN)Indications: Familial hypercholesterole talia,Family history of premature CAD,Family history of valvular heart disease,Mixed hyperlipidemia INJECT 1 ML SUBCUTANEOUSLY EVERY TWO WEEKS IN THE EVENING 2 mL Active Lancets MiscIndications:T ype 2 diabetes mellitus without complication, without long-term current use of insulin ([facility]) To use with One Touch Verio. Test blood glucose daily 100 each 1 Active albuterol sulfate HFA (PROAIR HFA) 108 (90 Base) MCG/ACT inhalerIndication s:Mild intermittent asthma without complication (HHS/HCC) Inhale 2 puffs into the lungs every 4 (four) hours as needed for Wheezing. 18 g 11 024 Active semaglutide (OZEMPIC) 2 mg/dose injection (PEN)Indications: Diabetes Mellitus Inject 2 mg into the skin once a week. Indications: Diabetes 9 mL 1 Active Cyanocobalamin (VITAMIN B 12 OR) 024 2123 Active fluticasone propionate (FLONASE) 50 MCG/ACT nasal sprayIndications: Acute non-recurrent maxillary sinusitis 2 sprays by Each Nostril route daily. 16 g 5 024 Active methylPREDNISolon e, GABE, (MEDROL DOSEPAK) 4 MG tabletIndications :Arthritis 6 TABLETS ON DAY ONE, 5 TABLETS DAY TWO, 4 TABLETS DAY THREE, 3 TABLETS DAY FOUR, 2 TABLETS DAY FIVE, AND 1 TABLET DAY SIX 1 each 024 Active fluconazole (DIFLUCAN) 150 MG tabletIndications :Yeast infection Take one tablet by mouth immediately, may repeat in 72 hours if needed. 2 tablet 024 Active pantoprazole EC (PROTONIX) 40 MG tabletIndications :Gastroesophageal reflux disease, unspecified whether esophagitis present Take 1 tablet by mouth once daily 90 tablet 1 024 Active citalopram (CELEXA) 40 MG tabletIndications :Anxiety,Depressi ve disorder Take 1 tablet by mouth once daily 90 tablet 024 Active zolpidem (AMBIEN) 10 MG tabletIndications :Primary insomnia TAKE 1 TABLET BY MOUTH NIGHTLY NEEDED FOR SLEEP 30 tablet 2 024 Active ARIPiprazole (ABILIFY) 2 MG tabletIndications :Anxiety,Depressi ve disorder,Perimeno pausal symptoms TAKE 1 TABLET BY MOUTH ONCE DAILY AT BEDTIME 90 tablet 024 Active spironolactone (ALDACTONE) 50 MG tabletIndications :Acne vulgaris Take 2 tablets by mouth once daily 90 tablet 025 Active spironolactone (ALDACTONE) 50 MG tabletIndications :Acne vulgaris Take 2 tablets (100 mg total) by mouth daily. 90 tablet 2 024 2024 Discontinued Active Problems Problem Noted Date Diagnosed Date Acne vulgaris 02/03/2024 Class 2 severe obesity due t o excess calories with serious comorbidity and body mass index (BMI) of 35.0 to 35.9 in adult ([facility]) 10/19/2023 Uncontrolled type 2 diabetes mellitus with hyperglycemia ([facility]) 06/20/2023 NAFLD (nonalcoholic fatty liver disease) 023 Localized swelling of both lower legs 03/19/2023 Family history of premature CAD 03/19/2023 Family history of valvular heart disease 023 Vitamin D deficiency, unspecified 03/19/2023 Perimenopausal symptoms 05/16/2022 Mood swing 05/16/2022 Prediabetes 02/23/2022 Lipoma of left lower extremity 04/10/2021 Mild intermittent asthma without complication (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 Polycystic ovarian syndrome 10/23/2019 Familial hypercholesterolemia 02/26/2019 Hyperlipidemia 08/24/2018 Thyroid nodule 03/14/2018 Fatigue 01/31/2018 GERD (gastroesophageal reflux disease) 8 Mild shortness of breath 07/12/2017 Multiple thyroid nodules 06/21/2017 Viral thyroiditis 06/21/2017 Depressive disorder 2017 Hypertension 01/24/2017 Insomnia 10/31/2016 Hypothyroidism 06/04/2013 Thyroiditis 06/04/2013 Resolved Problems Problem Noted Date Diagnosed Date Resolved Date Class 2 severe obesity due t o excess calories with serious comorbidity and body mass index (BMI) of 37.0 to 37.9 in adult ([facility]) 03/15/2023 03/19/2023 Acute pain of right shoulder 10/28/2020 03/19/2023 Excessive daytime sleepiness 10/10/2020 02/05/2024 Lower abdominal pain 03/22/2020 020 Overview (03/22/2020): Added automatically from request for surgery [id number] Pre-operative clearance 03/02/202003/01 Asthma ([facility]) 10/23/2019 04/11/2020 Antibiotic-induced yeast infection 02/26/2019 09/05/2022 Acute non-recurrent frontal sinusitis 02/26/2019 04/11/2020 Class 1 obesity due to exces s calories with body mass index (BMI) of 34.0 to 34.9 in adult 02/26/2019 04/10/2021 Class 2 severe obesity due t o excess calories with serious comorbidity and body mass index (BMI) of 36.0 to 36.9 in adult ([facility]) 02/05/2018 02/05/2024 Muscle strain of right upper back 07/12/2017 05/22/2023 Pain aggravated by coughing and deep breathing 07/12/2017 04/11/2020 Upper back pain 07/12/2017 04/11/2020 Migraines 2017 04/11/2020 Immunizations Name Administration Dates Next Due Dtap (Generic) 07/01/2011 Flublok (Quadrivalent) 06/22/2018 Fluzone 6 Months+ Quad (0.5 mL Prefilled Syringe) 06/17/2023,04/10/2021,04/11/2020 Influenza (Generic) 04/05/2024, 8,06/17/2018,2015,04/05/2015,04/19/2014 Influenza Adult (Generic) 03/14/2022,,06/21/2017,2015,04/02/2016,04/05/2015,04/19/2014 Influenza Virus, Split 6-35 Mo 06/17/2018 PFIZER COVID-19 (ORIGINAL FORMULATION, PURPLE CAP) mRNA, LNP-S, PF, 30 MCG/0.3 ML DOSE 06/02/2021,05/05/2021 PFIZER COVID-19 BIVALENT (12 +) mRNA, LNP-S, PF, 30 MCG/0.3 ML DOSE 05/11/2022 Pneumococcal (Pneumovax 23) 10/28/2020, 9 Prevnar(Pcv 7) 03/14/2022 Tdap (Adacel) 05/11/2022 Tdap (Generic) 07/01/2011 Family History Medical History Relation Comments Aneurysm Father Heart Disease Father Hyperlipidemia Father Kidney Stones Father Thyroid Father Cancer Maternal Grandfather bladder can cer Diabetes Maternal Grandfather Heart Maternal Grandfather Hypertension Maternal Grandfather Hypertension Maternal Grandmother Heart Disease Mother Hyperlipidemia Mother Hypertension Mother Cancer Paternal Grandfather lung Hyperlipidemia Paternal Grandfather Diabetes Paternal Grandmother Heart Paternal Grandmother Kidney Stones Paternal Uncle Relation Status Comments Father Alive Maternal Grandfather Maternal Grandmother Mother Alive Paternal Grandfather Paternal Grandmother Paternal Uncle Social History Tobacco Use Types Packs/Day Years Used Date Smoking Tobacco: Former Cigarettes 0.5 15 0 02/25/1994 - 02/25/2009 Passive Smoke Exposure: Past Smokeless Tobacco: Never Alcohol Use Standard Drinks/Week Comments Not Currently 0 (1 standard drink = 0.6 oz pur e alcohol) occ AUDIT-C Answer Date Recorded Frequency of Alcohol Consumption Monthly or less 08/18/2018 Average Number of Drinks Not on file 019 Frequency of Binge Drinking Not on file 08/01 PHQ-2 Answer Date Recorded Patient Health Questionnaire-2 Score 2 07/16/2023 Comments No Sex and Gender Information Value Date Recorded Sex Assigned at Not on file Legal Sex Female 8:11 PM CDT Gender Identity Not on file Sexual Orientation Not on file Last Filed Vital Signs Vital Sign Reading Time Taken Comments Blood Pressure 94/58 02/21/2024 8:57 AM CDT Pulse 92 02/21/2024 8:57 AM CDT Temperature 36.7 ??C (98 ??F) 02/03/2024 8:30 AM CDT Respiratory Rate 16 02/03/2024 8:30 AM CDT Oxygen Saturation 97% 02/21/2024 8:57 AM CDT Inhaled Oxygen Concentration - - Weight 87.8 kg (193 lb 9.6 oz) 02/21/2024 8:57 A M CDT Height 160 cm (5' 3 ) 02/21/2024 8:57 AM CDT Body Mass Index 34.29 02/21/2024 8:57 AM CDT Plan of Treatment Upcoming Encounters Date Type Department Care Team (Late st Contact Info) Description 08/17/2024 8:40 AM STAIN WIPER Office Visit [facility] - [address] [phone] Ivette Pearce, GIUSEPPE [address] [place] [address] 02/19/2025 9:00 AM CDT Office Visit [facility]-[address] [phone] Carine Roberts MD [address] [facility] [address] [place] [address] [id number] Health Maintenance Due Date Last Done Comments Cervical Cancer Screening Pap Smear (Age 30 to 64) Every 3 Years 1978 Annual Physical 1981 Hepatitis B Vaccines (1 of 3 - 19+ 3-dose series) 1997 Pneumococcal Vaccine: Pediatrics (0 to 5 Years) and At-Risk Patients (6 to 64 Years) (2 of 2 - PCV) 10/28/2021 10/28/2020, 05/09/2019 Mammogram Screening 02/15/2024 02/14/2022, 01/31/2022, 01/10/2021, Additional history exists COVID-19 Vaccine ( season) 2024 05/11/2022, 06/02/2021, 05/05/2021 PHQ-2 (Physician [place]) 07/01/2024 07/16/2023 PHQ-2 (Physician [place]) 07/16/2024 07/16/2023 Hemoglobin A1C 08/05/2024 02/03/2024, 04/0 01/2024, 05/21/2023, Additional history exists Kidney Health Evaluation 12/23/2024 12/24/2023 Hepatitis C 01/29/2025 Postponed from 1996 (Future Appointment) Lipid Panel 02/16/2025 02/17/2024, 04/0 01/2024, 03/30/2023, Additional history exists Diabetes: Retinopathy Eye Exam 08/22/2025 08/22/2023 Colorectal Cancer Screening FIT-DNA (3 Years) 08/01/2026 08/01/2023, 08/01/2023 Cervical Cancer Screening Pap with HPV Testing (Age 30 to 64) Every 5 Years 10/19/2026 10/19/2021 Cervical Cancer Screening with HPV 10/19/2026 DTaP, Tdap and Td Vaccines (4 - Td or Tdap) 05/11/2032 05/11/2022, 07/01/2011, 07/01/2011 Influenza Adult Completed 04/05/2024, 05/31, 03/14/2022, Additional history exists Meningococcal B Vaccine Aged Out No l onger eligible based on patient's age to complete this topic Meningococcal Vaccine Aged Out No coco gloria eligible based on patient's age to complete this topic RSV Immunizations Under 20 Months Aged Out No longer eligible based on patient's age to complete this topic Medical Devices Implanted Type Area Complaint Evaluation Officer Device Identifier Shelf Expiration Date Model / Serial / Lot [employer] Compression Ft Cannulated Titanium, Fully Threaded Variable Stepped Pitch Implanted:Qty: 1 on 03/03/2020 by David Alcala DPM at [facility] Screw Right: Foot [employer] [id number] / / Procedures Procedure Name Priority Date/Time Associated Diagnosis Comments LIPID PANEL Routine 02/17/2024 8:40 AM CDT HEMOGLOBIN, GLYCOSYLATED Routine 02/03/2024 Type 2 diabetes mellitus without complication, without long-term current use of insulin ([facility]) DIABETIC RETINOPATHY EXAM (NEGATIVE)(SCAN ORDER) Routine 08/22/2023 COLOGUARD (EXACT SCIENCE) Routine 08/01/2023 9:35 AM STAIN WIPER Screening for colon cancer MAMMOGRAM GENERIC (SCAN ORDER) 02/14/2022 OUTSIDE CYTOPATH CERV/VAG INTERPRET (PAP) 10/19/2021 from Last 3 Months or Most Recently Relevant to Health Maintenance Results * (ABNORMAL) LIPID PANEL (02/17/2024 8:40 AM CDT) CHOLESTEROL 189 MG/DL 02/17/2024 6:34 PM CDT [facility] Comment:DESIRABLE: <200 TRIGLYCERIDES 170 MG/DL 02/17/2024 6:34 PM CDT [facility] Comment:150-199 BORDERLINE H IGH HDL 39(L) >49 MG/DL 02/17/2024 6:34 PM CDT [facility] LDL (CALCULATED) 116 MG/DL 02/17/20 6:34 PM CDT [facility] Comment:100-129 NEAR OR ABOV E OPTIMAL VLDL CALCULATION 34 MG/DL 02/17/20 6:34 PM CDT [facility] Comment:REFERENCE RANGE NOT ESTABLISHED CHOL/HDL RATIO 4.8 02/17/2024 6:34 PM CDT [facility] Comment:REFERENCE RANGE NOT ESTABLISHED LDL/HDL 3.0 02/17/2024 6:34 PM CDT [facility] Comment:REFERENCE RANGE NOT ESTABLISHED NON HDL CHOLESTEROL 150 MG/DL 02/17/2024 6:34 PM CDT [facility] Comment:REFERENCE RANGE NOT ESTABLISHED 02/17/2024 8:40 AM CDT Carine Roberts MD LABORATORY Final Resul t Performing Organization Address City/[facility] Co de Phone Number [facility] [address] [place] [address], [phone] * HEMOGLOBIN, GLYCOSYLATED (02/03/2024) HGB A1C 5.7 % [facility] 02/03/2024 Ivette CHIN LABORATORY Final Result [facility] [address] [place] [address], * DIABETIC RETINOPATHY EXAM (NEGATIVE) (08/22/2023) [facility] Scanned SCANNING Final Resu lt [facility] ONBASE * COLOGUARD (EXACT SCIENCE) (08/01/2023 9:35 AM STAIN WIPER) COLOGUARD RESULT Negative Negative [facility] [employer] (CLIA #:[id number]) Comment: NEGATIVE TEST RESULT. A negative Cologuard result indicates a low likelihood that a colorectal cancer (CRC) or advanced adenoma (adenomatous polyps with more advanced pre-malignant features) ??is present. The chance that a person with a negative Cologuard test has a colorectal cancer is less than 1 in 1500 (negative predictive value >99.9%) or has an ??advanced adenoma is less than ??5.3% (negative predictive value 94.7%). These data are based on a prospective cross-sectional study of 10,000 individuals at average risk for colorectal cancer who were screened with both Cologuard and colonoscopy. (Zuleima Armas al, N Engl J Med 2014;370(14):1286- 1297) The normal value (reference range) for this assay is negative. COLOGUARD RE-SCREENING RECOMMENDATION: Periodic colorectal cancer screening is an important part of preventive healthcare for asymptomatic individuals at average risk for colorectal cancer. ??Following a negative Cologuard result, the [place] [employer] and U.S. Multi-Society Task Force screening guidelines recommend a Cologuard re-screening interval of 3 years. References: [place] [employer] Guideline for Colorectal Cancer Screening: https://www.cancer.org/cancer/kmwkp-fvzaxb-ozlxtc/twyngvbzx-vqwpootag-sceupjg/ac s-rec ommendations.html.; Inderjit DK, Margarette CR, Lauren RivasK, Colorectal Cancer Screening: Recommendations for Physicians and Patients from the U.S. Multi-Society Task Force on Colorectal Cancer Screening , Am J Gastroenterology 2017; 112:0942-0573. TEST DESCRIPTION: Composite algorithmic analysis of stool DNA-biomarkers with hemoglobin immunoassay. ?? Quantitative values of individual biomarkers are not reportable and are not associated with individual biomarker result reference ranges. Cologuard is intended for colorectal cancer screening of adults of either sex, 45 years or older, who are at average-risk for colorectal cancer (CRC). Cologuard has been approved for use by the U.S. FDA. The performance of Cologuard was established in a cross sectional study of average-risk adults aged 50-84. Cologuard performance in patients ages 45 to 49 years was estimated by sub-group analysis of near-age groups. Colonoscopies performed for a positive result may find as the most clinically significant lesion: colorectal cancer [4.0%], advanced adenoma (including sessile serrated polyps greater than or equal to 1cm diameter) [20%] or non- advanced adenoma [31%]; or no colorectal neoplasia [45%]. These estimates are derived from a prospective cross-sectional screening study of 10,000 individuals at average risk for colorectal cancer who were screened with both Cologuard and colonoscopy. (Zuleima Armas al, N Engl J Med 2014;370(14):5449-5450.) Cologuard may produce a false negative or false positive result (no colorectal cancer or precancerous polyp present at colonoscopy follow up). A negative Cologuard test result does not guarantee the absence of CRC or advanced adenoma (pre-cancer). The current Cologuard screening interval is every 3 years. ([place] [employer] and U.S. Multi-Society Task Force). Cologuard performance data in a 10,000 patient pivotal study using colonoscopy as the reference method can be accessed at the following location: www.[employer]hth[employer].Intellitactics/results. Additional description of the Cologuard test process, warnings and precautions can be found at www.[employer] [email or web address].comrd.com. STOOL STOOL SPECIMEN / Unknown 08/01/2023 9:35 AM STAIN WIPER 08/03/2023 12:36 PM STAIN WIPER us Ivette Pearce FURNACE COMBUSTION TESTER BODY FLUIDS AND STOOLS ORDERAB LES Final Result [employer], [employer] [address] [place] [address], [employer] (CLIA #:[id number]) [address] [place] [address] * MAMMOGRAM GENERIC (02/14/2022) Anatomical Region Laterality Modality Other 02/14/2022 [facility] Scanned SCANNING Final Resu lt * PAP SMEAR WITH HPV (10/19/2021) 10/19/2021 [facility] Scanned SCANNING Final Resu lt from Last 3 Months or Most Recently Relevant to Health Maintenance Insurance Care Teams Legal Instruments Examiner Relationship Specialty Start Date End Date Ivette Pearce FNP [address] [place] [id number] PCP - General Nurse Practitioner Family 07/08/18
--- OUTSIDE RECORDS SUMMARY | 2024-08-04 15:54 | XMS_ITS | Referral Summary ---
Author Organization [facility] Address [address] [place] [address] Care Team Providers Care Auxiliary Operator Name Role Phone Reji Watkins MD Primary Care Provider [phone] Source Comments [facility],non-owned Affiliates and Associated Physician Practices is amultiple site organization consisting of ambulatory clinics and hospital sitesin [place], [place], [place] and [place]. This disclosure is being madepursuant to the Care Everywhere program and may not contain all information available regarding this patient. Last updated 18.[facility] Allergies Active Allergy Reactions Criticality Noted Date [...] Date Diagnosed Date Hyperthyroidism 06/04/2013 Thyroiditis 06/04/2013 Social History Tobacco Use Types Packs/Day Years Used Date Smoking Tobacco: Former Cigarettes Q uit: 2009 Smokeless Tobacco: Never Tobacco Cessation:Counseling Given: Yes Sex and Gender Information Value Date Recorded Sex Assigned at Not on file Gender Identity Not on file Sexual Orientation Not on file Last Filed Vital Signs Vital Sign Reading Time Taken Comments Blood Pressure 118/62 07/25/2020 6:11 PM LINUX SECURITY ADMINISTRATOR Pulse 78 07/25/2020 6:11 PM LINUX SECURITY ADMINISTRATOR Temperature 36.9 ??C (98.5 ??F) 07/25/2020 6:11 PM CS T Respiratory Rate 20 07/25/2020 6:11 PM LINUX SECURITY ADMINISTRATOR Oxygen Saturation 98% 02/17/2020 11:39 AM CDT Inhaled Oxygen Concentration - - Weight 84.4 kg (186 lb) 02/17/2020 11:39 AM CDT Height 160 cm (5' 3 ) 02/17/2020 11:39 AM CDT Body Mass Index 32.95 02/17/2020 11:39 AM CDT Plan of Treatment Not on file Care Teams Auxiliary Operator Relationship Specialty Start Date End Date Reji Watkins MD [address] [place] [address] PCP - General Family Medicine 08/29/16
--- OUTSIDE RECORDS SUMMARY | 2024-08-04 15:54 | XMS_ITS | Data Portability ---
Author Organization [facility] [employer], Main Office Address [address] [place] [address] Assessment No assessment recorded. Plan of Treatment Reminders Order Date Submit Date Provider Last Modified By Organization Details Last Modified Time Details Appointments None recorded. Lab lipid panel, serum 2022 023 [email or web address] [facility], [address], [address], [place], [address], 3 09:08:16 HbA1c (hemoglobin A1c), blood 2022 023 [email or web address] [facility], 2022 [address], [address], [place], [address], 3 09:08:15 insulin, serum 2022 023 [email or web address] [facility], 2022 [address], [address], [place], [address], 3 09:08:15 TSH + free T4, serum 2022 023 [email or web address] [facility], 2022 [address], [address], [place], [address], 3 12:58:11 T3, free, serum or plasma 2022 023 [place] [facility], 2022 [address], [address], [place], [address], 3 12:58:10 CMP, serum or plasma 2022 023 [email or web address] [facility], 2022 [address], [address], [place], [address], 12:58:11 Referral None recorded. Procedures None recorded. Surgeries None recorded. Imaging None recorded. Medication Orders omega-3 acid ethyl esters 1 gram capsule 2022 023 [facility], [facility], [place], [address], 12:59:11 Ozempic 0.25 mg or 0.5 mg (2 mg/1.5 mL) subcutaneou s pen injector [address] [facility] [address] , [place], [address], 12:56:50 Unithroid 25 mcg tablet [address] [facility] [address], [address] , [place], [address], 3 12:58:02 Patient TargetsNo targets recorded. Patient InstructionsNo instructions recorded. Reason for Referral None Reported. Results Created Date Observation Date Name Description Value Unit Range Abnormal Flag Note LastModifiedBy Organization Detail LastModifiedTime 08/15/19 22 08/16/2021 HEMOG LOBIN A1C hemoglobin A1C 4.9 %_of_ total _HGB <5.7 normal For the purpo se of wilmer nettie for the prese nce of diabe manuel: <5.7% Consi stent with the absen ce of diabe manuel 5.7-6 .4% Consi stent with incre ased risk for diabe manuel (pred iabet es) > or =6.5% Consi stent with diabe manuel This assay resul t is consi stent with a decre ased risk of diabe manuel. Curre ntly, no conse nsus exist shabbir atkinson use of hemog lobin A1c for diagn osis of diabe manuel in child jocelyn. Accor demetrio to Ameri can Diabe manuel Assoc iatio n (ADA) guide lines , hemog lobin A1c <7.0% repre sents optim al contr ol in non-p regna nt diabe tic patie nts. Diffe rent anju cs may apply to speci fic patie nt popul ation s. [facility] in Diabe manuel(A DA). Not Available [address] [place], [address], 08/16/2021 16:04:33 08/15/19 22 08/16/2021 TSH+F REE T4 TSH 2.07 mIU/L normal Refer ence Range > or = 20 Years 0.40- 4.50 Pregn john Range s First trime ster 0.26- 2.66 Secon d trime ster 0.55- 2.73 Third trime ster 0.43- 2.91 Not Available [address] [place], [address], 08/16/2021 16:04:32 08/15/19 22 08/16/2021 TSH+F REE T4 T4, free 1.2 NG/dL 0.8-1. 8 normal Not Available [address] [address] [place], [address], 08/16/2021 16:04:32 08/15/19 22 08/16/2021 T3, FREE T3, free 3.3 pg/mL 2.3-4. 2 normal Not Available [address] [place], [address], 08/16/2021 16:04:32 08/15/19 22 08/16/2021 VITAM IN B12/F OLATE , SERUM PANEL vitamin B12 1638 pg/mL 200-11 00 high Not Available [facility] [address], [address], 08/16/2021 16:04:31 08/15/19 22 08/16/2021 VITAM IN B12/F OLATE , SERUM PANEL folate, serum 13.0 NG/mL normal Refer ence Range Low: <3.4 Borde rline : 3.4-5 .4 Swathi l: >5.4 Not Available [email or web address] [address], [address], 08/16/2021 16:04:31 08/15/19 22 08/16/2021 INSUL IN insulin 15.2 uIU/m L normal Refer ence Range < or = 19.6 Risk: Optim al < or = 19.6 Moder ate NA High >19.6 Adult cardi ovasc ular event risk categ ory cut point s (opti mal, moder ate, high) are based on [facility] popul ation data from 06/19 11. This insul in assay shows stron g cross -reac tivit y for some insul in analo gs (lisp ro, aspar t, and glarg ine) and much lower cross -reac tivit y with other s (dete robbin, gluli sine) . Not Available [email or web address] [address], [address], 08/16/2021 16:04:30 08/15/19 22 08/16/2021 THYRO ID PEROX IDASE ANTIB ODIES thyroid peroxidase antibodies 64 IU/mL <9 high Not Available [email or web address] [address], [address], 08/16/2021 16:04:30 08/15/19 22 08/16/2021 COMPR EHENS LARISSA METAB OLIC PANEL glucose 85 mg/dL 65-99 normal Fasti ng refer ence inter brittany Not Available [email or web address] [address], [address], 08/16/2021 16:04:29 08/15/19 22 08/16/2021 COMPR EHENS LARISSA METAB OLIC PANEL urea nitrogen (BUN) 15 mg/dL 7-25 normal Not Available [email or web address] [address] [place], [address], 08/16/2021 16:04:29 08/15/19 22 08/16/2021 COMPR EHENS LARISSA METAB OLIC PANEL creatinine 0.94 mg/dL 0.50-1 .10 normal Not Available [address], [address], 08/16/2021 16:04:29 08/15/19 22 08/16/2021 COMPR EHENS LARISSA METAB OLIC PANEL eGFR non-afr. albanian 74 mL/mi n/1.7 3m2 > or = 60 normal Not Available [address], [address], 08/16/2021 16:04:29 08/15/19 22 08/16/2021 COMPR EHENS LARISSA METAB OLIC PANEL eGFR 86 mL/mi n/1.7 3m2 > or = 60 normal Not Available [address], [address], 08/16/2021 16:04:29 08/15/19 22 08/16/2021 COMPR EHENS LARISSA METAB OLIC PANEL BUN/creatini ne ratio not applic able (calc ) 6-22 Not Available [address], [address], 08/16/2021 16:04:29 08/15/19 22 08/16/2021 COMPR EHENS LARISSA METAB OLIC PANEL sodium 143 mmol/ L 135-14 6 normal Not Available [address], [address], 08/16/2021 16:04:29 08/15/19 22 08/16/2021 COMPR EHENS LARISSA METAB OLIC PANEL potassium 4.6 mmol/ L 3.5-5. 3 normal Not Available [address], [address], 08/16/2021 16:04:29 08/15/19 22 08/16/2021 COMPR EHENS LARISSA METAB OLIC PANEL chloride 105 mmol/ L 98-110 normal Not Available [address], [address], 08/16/2021 16:04:29 08/15/19 22 08/16/2021 COMPR EHENS LARISSA METAB OLIC PANEL carbon dioxide 29 mmol/ L 20-32 normal Not Available [address], [address], 08/16/2021 16:04:29 08/15/19 22 08/16/2021 COMPR EHENS LARISSA METAB OLIC PANEL calcium 9.9 mg/dL 8.6-10 .2 normal Not Available [address], [address], 08/16/2021 16:04:29 08/15/19 22 08/16/2021 COMPR EHENS LARISSA METAB OLIC PANEL protein, total 6.7 g/dL 6.1-8. 1 normal Not Available [address], [address], 08/16/2021 16:04:29 08/15/19 22 08/16/2021 COMPR EHENS LARISSA METAB OLIC PANEL albumin 4.5 g/dL 3.6-5. 1 normal Not Available [address], [address], 08/16/2021 16:04:29 08/15/19 22 08/16/2021 COMPR EHENS LARISSA METAB OLIC PANEL globulin 2.2 g/dL_ (calc ) 1.9-3. 7 normal Not Available [address], [address], 08/16/2021 16:04:29 08/15/19 22 08/16/2021 COMPR EHENS LARISSA METAB OLIC PANEL albumin/glob ulin ratio 2.0 (calc ) 1.0-2. 5 normal Not Available [address], [address], 08/16/2021 16:04:29 08/15/19 22 08/16/2021 COMPR EHENS LARISSA METAB OLIC PANEL bilirubin, total 0.5 mg/dL 0.2-1. 2 normal Not Available [address] [address] [place], [address], 08/16/2021 16:04:29 08/15/19 22 08/16/2021 COMPR EHENS LARISSA METAB OLIC PANEL alkaline phosphatase 60 U/L 31-125 normal Not Available [facility] [address] [place], [address], 08/16/2021 16:04:29 08/15/19 22 08/16/2021 COMPR EHENS LARISSA METAB OLIC PANEL AST 19 U/L 10-30 normal Not Available [address] [address] [place], [address], 08/16/2021 16:04:29 08/15/19 22 08/16/2021 COMPR EHENS LARISSA METAB OLIC PANEL ALT 25 U/L 6-29 normal Not Available [address] [address] [place], [address], 08/16/2021 16:04:29 01/20/20 22 01/22/2022 HEMOG LOBIN A1C hemoglobin A1C 4.9 %_of_ total _HGB <5.7 normal For the purpo se of wilmer sheffield for the prese nce of diabe manuel: <5.7% Consi stent with the absen ce of diabe manuel 5.7-6 .4% Consi stent with incre ased risk for diabe manuel (pred iabet es) > or =6.5% Consi stent with diabe manuel This assay resul t is consi stent with a decre ased risk of diabe manuel. Curre ntly, no conse nsus exist shabbir atkinson use of hemog lobin A1c for diagn osis of diabe manuel in child jocelyn. Accor ding to Ameri can Diabe manuel Assoc iatio n (ADA) guide lines , hemog lobin A1c <7.0% repre sents optim al contr ol in non-p regna nt diabe tic patie nts. Diffe rent ri cs may apply to speci fic patie nt popul ation s. [facility] in Diabe manuel(A DA). Not Available [email or web address] [address] [place], [address], 01/22/2022 13:49:33 01/20/20 22 01/22/2022 TSH+F REE T4 TSH 1.79 mIU/L normal Refer ence Range > or = 20 Years 0.40- 4.50 Pregn john Range s First trime ster 0.26- 2.66 Secon d trime ster 0.55- 2.73 Third trime ster 0.43- 2.91 Not Available [employer] [address] [place], [address], 01/22/2022 13:49:33 01/20/20 22 01/22/2022 TSH+F REE T4 T4, free 1.2 NG/dL 0.8-1. 8 normal Not Available [email or web address] [address] [place], [address], 01/22/2022 13:49:33 01/20/20 22 01/22/2022 T3, FREE T3, free 2.7 pg/mL 2.3-4. 2 normal Not Available [email or web address] [address] [place], [address], 01/22/2022 13:49:32 01/20/20 22 01/22/2022 INSUL IN insulin 14.2 uIU/m L normal Refer ence Range < or = 19.6 Risk: Optim al < or = 19.6 Moder ate NA High >19.6 Adult cardi ovasc ular event risk categ ory cut point s (opti mal, moder ate, high) are based on [facility] popul ation data from 06/19 11. This insul in assay shows stron g cross -reac tivit y for some insul in analo gs (lisp ro, aspar t, and glarg ine) and much lower cross -reac tivit y with other s (dete robbin, gluli sine) . Not Available [address], [address], 01/22/2022 13:49:32 01/20/20 22 01/22/2022 THYRO ID PEROX IDASE ANTIB ODIES thyroid peroxidase antibodies 131 IU/mL <9 high Not Available [facility] [address], [address], 01/22/2022 13:49:31 01/20/20 22 01/22/2022 COMPR EHENS LARISSA METAB OLIC PANEL glucose 76 mg/dL 65-99 normal Fasti ng refer ence inter brittany Not Available [facility] [address], [address], 01/22/2022 13:49:30 01/20/20 22 01/22/2022 COMPR EHENS LARISSA METAB OLIC PANEL urea nitrogen (BUN) 13 mg/dL 7-25 normal Not Available [address], [address], 01/22/2022 13:49:30 01/20/20 22 01/22/2022 COMPR EHENS LARISSA METAB OLIC PANEL creatinine 0.81 mg/dL 0.50-0 .99 normal Not Available [address], [address], 01/22/2022 13:49:30 01/20/20 22 01/22/2022 COMPR EHENS LARISSA METAB OLIC PANEL eGFR 92 mL/mi n/1.7 3m2 > or = 60 normal The eGFR is based on the CKD-E PI 2020 equat ion. To calcu late the new eGFR from a previ ous Creat inine or Cysta tin C resul t, go to https ://nereyda reyes.krishan albert/gena dukesess evelynal s/ kdoqi /gfr% 5Fcal culat or Not Available [address] [place], [address], 01/22/2022 13:49:30 01/20/20 22 01/22/2022 COMPR EHENS ALRISSA METAB OLIC PANEL BUN/creatini ne ratio not applic able (calc ) 6-22 Not Available [address], [address], 01/22/2022 13:49:30 01/20/20 22 01/22/2022 COMPR EHENS LARISSA METAB OLIC PANEL sodium 149 mmol/ L 135-14 6 high Not Available [address], [address], 01/22/2022 13:49:30 01/20/20 22 01/22/2022 COMPR EHENS LARISSA METAB OLIC PANEL potassium 4.9 mmol/ L 3.5-5. 3 normal Not Available [address], [address], 01/22/2022 13:49:30 01/20/20 22 01/22/2022 COMPR EHENS LARISSA METAB OLIC PANEL chloride 107 mmol/ L 98-110 normal Not Available [address], [address], 01/22/2022 13:49:30 01/20/20 22 01/22/2022 COMPR EHENS LARISSA METAB OLIC PANEL carbon dioxide 18 mmol/ L 20-32 low Not Available [address], [address], 01/22/2022 13:49:30 01/20/20 22 01/22/2022 COMPR EHENS LARISSA METAB OLIC PANEL calcium 8.7 mg/dL 8.6-10 .2 normal Not Available [address], [address], 01/22/2022 13:49:30 01/20/20 22 01/22/2022 COMPR EHENS LARISSA METAB OLIC PANEL protein, total 7.3 g/dL 6.1-8. 1 normal Not Available [address], [address], 01/22/2022 13:49:30 01/20/20 22 01/22/2022 COMPR EHENS LARISSA METAB OLIC PANEL albumin 4.6 g/dL 3.6-5. 1 normal Not Available [address], [address], 01/22/2022 13:49:30 01/20/20 22 01/22/2022 COMPR EHENS LARISSA METAB OLIC PANEL globulin 2.7 g/dL_ (calc ) 1.9-3. 7 normal Not Available [address], [address], 01/22/2022 13:49:30 01/20/20 22 01/22/2022 COMPR EHENS LARISSA METAB OLIC PANEL albumin/glob ulin ratio 1.7 (calc ) 1.0-2. 5 normal Not Available [address], [address], 01/22/2022 13:49:30 01/20/20 22 01/22/2022 COMPR EHENS LARISSA METAB OLIC PANEL bilirubin, total 0.5 mg/dL 0.2-1. 2 normal Not Available [address], [address], 01/22/2022 13:49:30 01/20/20 22 01/22/2022 COMPR EHENS LARISSA METAB OLIC PANEL alkaline phosphatase 60 U/L 31-125 normal Not Available [address], [address], 01/22/2022 13:49:30 01/20/20 22 01/22/2022 COMPR EHENS LARISSA METAB OLIC PANEL AST 25 U/L 10-30 normal Resul ts sligh tly incre ased due to hemol ysis. Not Available [facility] [address] [place], [address], 01/22/2022 13:49:30 01/20/20 22 01/22/2022 COMPR EHENS LARISSA METAB OLIC PANEL ALT 19 U/L 6-29 normal Not Available [facility] [address], [address], 01/22/2022 13:49:30 01/20/20 22 01/22/2022 LIPID PANEL , STAND BRUCE cholesterol, total 152 mg/dL <200 normal Not Available [address], [address], 01/22/2022 13:49:30 01/20/20 22 01/22/2022 LIPID PANEL , STAND BRUCE HDL cholesterol 42 mg/dL > or = 50 low Not Available [facility] [address] [place], [address], 01/22/2022 13:49:30 01/20/20 22 01/22/2022 LIPID PANEL , STAND BRUCE triglyceride s 161 mg/dL <150 high Not Available [address], [address], 01/22/2022 13:49:30 01/20/20 22 01/22/2022 LIPID PANEL , STAND BRUCE LDL-choleste rol 84 mg/dL _(jaswinder c) normal Refer ence range : <100 Lanie able range <100 mg/dL for prima ry preve ntion ; <70 mg/dL for patie nts with CHD or diabe tic patie nts with > or = 2 CHD risk facto rs. LDL-C is now calcu lated using the Jeni n-Hop kins calcu saira n, which is a valid ated novel metho d provi ding trina r accur acy than the Fried delvis equat ion in the estim ation of LDL-C . Jeni merlos SS et al. ALYSSA. 2013; 310(1 9): 2061- 2068 (http ://ed ucati on.Qu Shaheen cristianeEncite. com/f aq/FA Q164) Not Available [facility] [address] , [place], [address], 01/22/2022 13:49:30 01/20/20 22 01/22/2022 LIPID PANEL , STAND BRUCE chol/HDLC ratio 3.6 (calc ) <5.0 normal Not Available [facility] [address], [place], [address], 01/22/2022 13:49:30 01/20/20 22 01/22/2022 LIPID PANEL , STAND BRUCE non HDL cholesterol 110 mg/dL _(jaswinder c) <130 normal For patie nts with diabe manuel plus 1 major ASCVD risk facto r, treat ing to a non-H DL-C goal of <100 mg/dL (LDL- C of <70 mg/dL ) is consi dered a thera peuti c optio n. Not Available [email or web address] [address] , [place], [address], 01/22/2022 13:49:30 02/10/20 22 02/19/2022 HERED ITARY HEMOC HROMA TOSIS DNA MUT hereditary hemochromato sis DNA mut see below RESUL T: NEGAT LARISSA Inter preta tion: DNA testi ng indic ates that this indiv idual is negat larissa for the C282Y and H63D patho genic varia nts in the HFE gene. This negat larissa resul t signi fican tly reduc es the likel ihood of hered itary hemoc hroma tosis (HH) in this indiv idual . Howev er, it does not rule out the prese nce of other patho genic varia nts withi n the HFE gene or a diagn osis of HH. The risk of this indiv idual to carry an HFE patho genic varia nt other than those teste d in this assay depen ds great ly on famil y and clini jaswinder histo ry as well as ethni city. This assay does not test for other prima ry or secon blanquita iron overl oad disor ders. Labor atory resul ts and submi tted clini jaswinder infor matelena n revie wed by Gina Parker, Ph.D. , FAC , [facility] . DETAI LED ASSAY INFOR FAHAD N: Hered itary hemoc hroma tosis (HH) is an autos omal reces sive disor carmen of iron metab olism that can resul t in iron overl oad and poten tial organ failu re. It is one of the most commo n macario ic disor ders in indiv idual s of [place] an[place] try, with an estim ated ronald er frequ ency of 10%. HH is cause d by patho genic varia nts in the HFE gene. Most indiv idual s with HH (60-9 0%) are homoz ygous for the C282Y patho genic varia nt. A small er perce ntage of affec rigo indiv idual s are eithe r compo und heter ozygo us for the C282Y and H63D patho genic varia nts (3%-8 %), or homoz ygous for the H63D patho genic varia nt (appr oxima tely 1%). METHO DOLOG Y: This assay detec ts two patho genic varia nts in the HFE gene, C282Y ([place] [address] 0.2: c.845 G>A, p.Cys 282Ty r) and H63D ([place] [address] 0.2: c.187 C>G, p.His 63Asp ), that are commo nly assoc iated with HH. These varia nts are detec rigo by multi plex- polym erase chain react ion (PCR) ampli ficat ion, follo wed by restr ictio n enzym e diges tion and capil dilia elect ropho resis . LIMIT ATION S: This assay does not detec t other patho genic varia nts in the HFE gene that may be assoc iated with HH. Altho ugh rare, false posit larissa or false negat larissa resul ts may occur . All resul ts shoul d be inter prete d in the edwina xt of clini jaswinder findi ngs, relev ant histo ry, and other labor atory data. Healt h care provi carmens, aamir e conta ct your local [facility] macario ic couns elor or call -GENE INFO ( [phone] ) for veronika roland with the inter preta tion of these resul ts. This test was devel oped and its rosamaria tical perfo rmanc e luz marina cteri stics have been deter mined by [facility] [employer] . It has not been clear ed or appro debora by FDA. This assay has been valid ated pursu ant to the CLIA regul ation s and is used for clini jaswinder purpo ses. For more infor aamir guo e refer to http: //[facility]annon merlos.que stdia gnost ics.c om/fa q/hem ochro babin is. (This link is being provi ded for infor matio nal/e ducat ional purpo ses only. ) Revie wed and shae d by Labor atory resul ts and submi tted clini jaswinder infor matio n revie wed by Gina Parker, Ph.D. , FAC , MBS , Shae d on 02/19 at 15:43 Not Available [facility] [address] [place], [address], 02/19/2022 18:50:00 01/12/2001/10/2021 US, thyro id No observ ation record ed. [id number] [facility] [address], [place], [address], 08/29/2022 04:40:49 Result Notes None recorded. 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 Procedures Surgical History Date Name Laterality Status Provider Name and Address Organization Details Recorded Time Tonsillectomy completed Not Available [facility] 08/29/2022 04:30:29 section completed Not Available [facility] 08/29/2022 04:30:29 Tubal Ligation completed Not Available [facility] 08/29/2022 04:30:29 Amenia Teeth completed Not Available [facility] 08/29/2022 04:30:29 Appendectomy completed Not Available [facility] 08/29/2022 04:30:29 excision of bunion completed Not Available [facility] 08/29/2022 04:30:29 reconstruction of nose completed Not Available [facility] 08/29/2022 04:30:29 Imaging Results Imaging Date Name Status LastModified by Organiz ation Details LastModified Time 01/10/2021 US, thyroid completed [id number] [facility] [address], [place], [address], 08/29/2022 04:40:49 Procedure Notes None recorded. Medical Equipment None Reported. Allergies Allergen ID Allergen Name Allergen Category Reaction Reaction Severity Criticality Documentation Date Start Date Code Code System Note Provider Name and Address Organization Details Recorded Time 6638 Substance with sulfonami de structure and antibacte rial mechanism of action (substanc e) medicatio n Not available Not available Not available 08/29/2022 17683 8003 SNOMED Not Available [facility] 3 04:40:19 6639 Product containin g 3-hydroxy -3-methyl glutaryl- coenzyme A reductase inhibitor (product) medicatio n Not available Not available Not available 08/29/2022 62596 009 SNOMED Not Available [facility] 3 04:40:19 6640 hydrocodo ne Not available Not available Not available Not available 08/29/2022 5489 RxNorm viole ntly ill Not Available [facility] 3 04:40:19 6641 spironola ctone medicatio n Not available Not available Not available 08/29/2022 9997 RxNorm hot flash es Not Available [facility] 3 04:40:19 Medications Name Sig Start Date Stop Date Status Note LastModified by Organization Details LastModified Time Prescript ion - Prior Authoriza tion Request active Not Available Not Available Not Available cyclobenz aprine 10 mg tablet TAKE 1 TABLET BY MOUTH THREE TIMES DAILY NEEDED FOR MUSCLE SPASM active Not Available Not Available No t Available amoxicill in 500 mg capsule TAKE 1 CAPSULE BY MOUTH THREE TIMES DAILY FOR 5 DAYS 10/04 completed Not Available Not Available Not Available metformin 500 mg tablet Take 1 tablet twice a day by oral route with meals for 30 days. 04/11 completed Not Available Not Available Not Available prednison e 10 mg tablet TAKE 4 TABLETS BY MOUTH ONCE DAILY FOR 3 DAYS, THEN 3 ONCE DAILY FOR 3 DAYS, THEN 2 ONCE DAILY FOR 3 DAYS, THEN 1 ONCE DAILY FOR 3 DAYS active Not Available Not Available No t Available cefuroxim e axetil 250 mg tablet TAKE 1 TABLET BY MOUTH TWICE DAILY FOR 10 DAYS 03/24 completed Not Available Not Available Not Available albuterol sulfate 2.5 mg/3 mL (0.083 %) solution for nebulizat ion active Not Available Not Available Not Available citalopra m 40 mg tablet TAKE 1 TABLET BY MOUTH ONCE DAILY active Not Available Not Available No t Available azithromy bassam 250 mg tablet TAKE 2 TABLETS BY MOUTH ON DAY 1, AND THEN TAKE 1 TABLET BY MOUTH ONCE A DAY ON DAY 2 THROUGH DAY 5 active Not Available Not Available No t Available ibuprofen 800 mg tablet active Not Available Not Available Not Available fluconazo le 150 mg tablet TAKE 1 TABLET BY MOUTH NOW .MAY REPEAT ONE TABLET 72 HOURS FOR CONTINUE D SYMPTOMS active Not Available Not Available No t Available hydrocodo ne 5 mg-acetam inophen 325 mg tablet 08/28 completed Not Available Not Available Not Available metronida zole 0.75 % (37.5 mg/5 gram) vaginal gel INSERT 1 APPLICAT ORFUL VAGINALL Y AT BEDTIME FOR 5 NIGHTS 10/04 completed Not Available Not Available Not Available prednison e 20 mg tablet TAKE 3 TABLETS BY MOUTH ONCE DAILY FOR 5 DAYS 08/28 completed Not Available Not Available Not Available atenolol 25 mg tablet TAKE 1/2 (ONE-KRISS F) TABLET BY MOUTH IN THE MORNING 2022 active Not Available Not Available Not Avai lable topiramat e 25 mg tablet 2021 active Not Available Not Available Not Avai lable valacyclo vir 500 mg tablet TAKE 1 TABLET BY MOUTH TWICE DAILY active Not Available Not Available No t Available aspirin 81 mg tablet,de layed release Take 1 tablet every day by oral route. 10/10 completed Not Available Not Available Not Available tramadol 50 mg tablet TAKE 1 TABLET BY MOUTH EVERY 4 HOURS NEEDED FOR PAIN 10/04 completed Not Available Not Available Not Available tamsulosi n 0.4 mg capsule TAKE 1 CAPSULE BY MOUTH ONCE DAILY active Not Available Not Available No t Available dexametha sone 1 mg tablet Take 1 tablet as needed by oral route as directed for 1 day. active take tablet at 10 pm night before 8 am cortisol level drawn Not Available Not Available Not Available doxycycli ne monohydra te 100 mg capsule TAKE 1 CAPSULE BY MOUTH TWICE DAILY FOR 10 DAYS active Not Available Not Available No t Available pantopraz ole 40 mg tablet,de layed release TAKE 1 TABLET BY MOUTH ONCE DAILY active Not Available Not Available No t Available buspirone 10 mg tablet TAKE 2 TABLETS BY MOUTH THREE TIMES DAILY active Not Available Not Available No t Available prednison e 50 mg tablet TAKE 1 TABLET BY MOUTH ONCE DAILY FOR 5 DAYS active Not Available Not Available No t Available Exelderm 1 % topical solution active Not Available Not Available Not Available Unithroid 25 mcg tablet Take 1 tablet every day by oral route in the morning for 90 days. active Not Available Not Available No t Available zaleplon 5 mg capsule TAKE 1 TO 2 CAPSULES BY MOUTH NIGHTLY AT BEDTIME 04/06 /2021 completed Not Available Not Available Not Available ibuprofen 600 mg tablet TAKE 1 TABLET BY MOUTH THREE TIMES DAILY NEEDED FOR PAIN active Not Available Not Available No t Available cefuroxim e axetil 500 mg tablet 08/28 completed Not Available Not Available Not Available zolpidem 10 mg tablet TAKE 1 TABLET BY MOUTH NIGHTLY NEEDED FOR SLEEP active Not Available Not Available No t Available methylpre dnisolone 4 mg tablets in a dose pack TAKE BY MOUTH DIRECTED ON INSIDE OF PACKAGE 03/24 completed Not Available Not Available Not Available albuterol sulfate HFA 90 mcg/actua tion aerosol inhaler INHALE 2 PUFFS BY MOUTH EVERY 4 HOURS NEEDED FOR WHEEZING active Not Available Not Available No t Available ondansetr on 4 mg disintegr ating tablet DISSOLVE 1 TABLET IN MOUTH EVERY 4 HOURS NEEDED FOR NAUSEA active Not Available Not Available No t Available cefdinir 300 mg capsule 08/28 completed Not Available Not Available Not Available fluticaso ne propionat e 50 mcg/actua tion nasal spray,[place] [facility] USE 2 SPRAY(S) IN EACH NOSTRIL ONCE DAILY active Not Available Not Available No t Available metformin ER 500 mg tablet,ex tended release 24 hr TAKE 2 TABLETS BY MOUTH TWICE DAILY DIRECTED 2022 active Not Available Not Available Not Avai lable lisinopri l 2.5 mg tablet TAKE 1 TABLET BY MOUTH ONCE DAILY active Not Available Not Available No t Available spironola ctone 50 mg tablet TAKE 2 TABLETS BY MOUTH ONCE DAILY active Not Available Not Available No t Available amoxicill in 875 mg-potass ium clavulana te 125 mg tablet TAKE 1 TABLET BY MOUTH TWICE DAILY FOR 10 DAYS 02/23 completed Not Available Not Available Not Available buspirone 15 mg tablet TAKE 1 TABLET BY MOUTH THREE TIMES DAILY 10/04 completed Not Available Not Available Not Available Pneumovax -23 25 mcg/0.5 mL injection syringe active Not Available Not Available Not Available ezetimibe 10 mg tablet 08/28 completed Not Available Not Available Not Available omega-3 acid ethyl esters 1 gram capsule Take 2 capsules twice a day by oral route before meals for 90 days. active Not Available Not Available No t Available eszopiclo ne 2 mg tablet TAKE 1 TABLET BY MOUTH NIGHTLY AT BEDTIME. TAKE IMMEDIAT LESLIE BEFORE BEDTIME 10/04 completed Not Available Not Available Not Available zolpidem ER 12.5 mg tablet,ex tended release,m ultiphase TAKE 1 TABLET BY MOUTH EVERY EVENING AT BEDTIME NEEDED 07/21 completed Not Available Not Available Not Available vitamin E 2021 active Not Available Not Available Not Avai lable Fish Oil 08/28 completed BID Not Available Not Available Not Available Vitamin D3 2019 active Not Available Not Available Not Avai lable Daily Multi-Vit joshi 2019 active Not Available Not Available Not Avai lable aripipraz ole 2 mg tablet TAKE 1 TABLET BY MOUTH NIGHTLY AT BEDTIME active Not Available Not Available No t Available adapalene 0.3 % topical gel active Not Available Not Available Not Available Vascepa 1 gram capsule active Not Available Not Available Not Available Praluent Pen 150 mg/mL subcutane ous pen injector INJECT 1 ML EVERY TWO WEEKS IN THE MORNING active Not Available Not Available No t Available Praluent Pen 75 mg/mL subcutane ous pen injector Inject 1 mL every 2 weeks by subcutan eous route in the morning for 90 days. active Not Available Not Available No t Available Repatha Syringe 140 mg/mL subcutane ous syringe INJECT 1 ML SUBCUTAN EOUSLY EVERY TWO WEEKS IN THE EVENING active Not Available Not Available No t Available Repatha SureClick 140 mg/mL subcutane ous pen injector active Not Available Not Available Not Available Fish Oil 1,000 mg (120 mg-180 mg) capsule Take by oral route. 03/24 completed Not Available Not Available Not Available Ozempic 0.25 mg or 0.5 mg (2 mg/1.5 mL) subcutane ous pen injector Inject 0.5 mg every week by subcutan eous route at dinner for 90 days. 2022 active Not Available Not Available Not Avai lable Aimovig Autoinjec tor 140 mg/mL subcutane ous auto-inje ctor INJECT 140 MG UNDER THE SKIN EVERY 30 DAYS active Not Available Not Available No t Available Nurtec ODT 75 mg disintegr ating tablet DISSOLVE 1 TABLET BY MOUTH NEEDED FOR MIGRAINE FOR UP TO 1 DOSE active Not Available Not Available No t Available Ozempic 1 mg/dose (4 mg/3 mL) subcutane ous pen injector INJECT 1 MG EVERY WEEK BY SUBCUTAN EOUS ROUTE AT DINNER FOR 90 DAYS 10/18 completed Not Available Not Available Not Available Ozempic 0.25 mg or 0.5 mg (2 mg/3 mL) subcutane ous pen injector INJECT 0.5 MG EVERY WEEK SUBCUTAN EOUSLY AT DINNER active This was DENIED on 10/25. We have sent multiple times. Not Available Not Available Not Available Vitals Date Recorded Body mass index (BMI) Body mass index (BMI) Body height Body height Body height Oxygen saturation Oxygen saturation in Arterial blood by Pulse oximetry Oxygen saturation Oxygen saturation in Arterial blood by Pulse oximetry Heart rate Heart rate Body temperature Body temperature Body weight Body weight Systolic blood pressure Diastolic blood pressure Systolic blood pressure Diastolic blood pressure Provider Name and Address Organization Details Last Updated DateTime 3 36 kg/m2 29.7 kg/m2 160.02 cm 160.02 cm 160.02 cm 95 % 95 % 98 % 98 % 91 /min 68 /min 98.5 [degF] 98 [degF] 81259.2 5 g 59438.8 g 102 mm[Hg] 64 mm[Hg] 100 mm[Hg] 65 mm[Hg] Not Available [facility] 3 04:32:11 Date Recorded Body height Body mass index (BMI) Body weight Body temperature Heart rate Systolic blood pressure Diastolic blood pressure Provider Name and Address Organization Details Last Updated DateTime 3 160.02 cm 33.1 kg/m2 17095.7 7 g 97.8 [degF] 90 /min 116 mm[Hg] 73 mm[Hg] LEONLE Nash [place] [facility] [place] [facility] 3 12:48:16 Social History Question Answer Notes LastModified by Organizat ion Details LastModified Time Tobacco Smoking Status Former Smoker Not Available [facility] 08/29/2022 04:15:21 What Is Your Level Of Alcohol Consumption? Occasional [id number] Information not available 08/29/2022 What Is Your Level Of Caffeine Consumption? Moderate [id number] Information not available 08/29/2022 How Much Tobacco Do You Chew? None [id number] Information not available 08/29/2022 In The 14 Days Before Symptom Onset, Have You Had Close Contact With A Laboratory-confir med COVID-19 While That Case Was Ill? No [id number] Information not available 08/29/2022 In The 14 Days Before Symptom Onset, Have You Had Close Contact With A Person Who Is Under Investigation For COVID-19 While That Person Was Ill? No [id number] Information not available 08/29/2022 Which Illicit Or Recreational Drugs Have You Used? None [id number] Information not available 08/29/2022 Do You Or Have You Ever Used E-cigarettes Or Vape? 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 [id number] Information not available 08/29/2022 How Many Years Have You Smoked Tobacco? 15 [id number] Information not available 08/29/2022 Have You Recently Traveled Abroad? No [id number] Information not available 08/29/2022 Sex: Female Functional Status None recorded. Mental Status None recorded. Family History Relationship Description Onset Age of this Age Resolved Age Notes LastModified by Organization Details LastModified Time Paternal Grandmother Diabetes mellitus [id number] Not available 08/29/2022 04:30:32 Paternal Grandmother Parathyroide ctomy [id number] Not available 08/29/2022 04:30:32 Maternal Grandfather Diabetes mellitus [id number] Not available 08/29/2022 04:30:32 Maternal Grandfather Hypertensive disorder [id number] Not available 08/29/2022 04:30:32 Maternal Grandfather Malignant neoplasm of urinary bladder [id number].[id number] Not available 08/29/2022 04:30:32 Maternal Grandfather Malignant neoplasm of skin [id number] Not available 08/29/2022 04:30:32 Maternal Grandfather Malignant tumor of lung [id number].[id number] Not available 08/29/2022 04:30:32 Father Hypercholest erolemia MIGRATION.[id number] Not available 08/29/2022 04:30:33 Father Vitiligo [id number].[id number] Not available 08/29/2022 04:30:33 Father Hypothyroidi sm MIGRATION.[id number] Not available 08/29/2022 04:30:33 Paternal Grandfather Hypercholest erolemia MIGRATION.[id number] Not available 08/29/2022 04:30:33 Medical History Condition Response INSOMNIA Y HIGH CHOLESTEROL / HYPERLIPIDEMIA Y HYPOTHYROIDISM Y ASTHMA Y DEPRESSION (INCLUDING POST ) Y HEADACHES/MIGRAINES Y HYPERTENSION Y ANXIETY DISORDER Y GERD/NAUSEA Y Gynecological HistoryNo gynecological history recorded. Obstetrics History GPAL:G 0 P 0 0 0 0 Past Encounters Encounter ID Performer Location Encounter Start Date Encounter Closed Date Diagnosis/Indication Diagnosis SNOMED-CT Code Diagnosis ICD10 Code Diagnosis Note [id number] [facility] [address] [place] [address] 10/10/2020 00:00:00 10/10/2020 14:45:10 [id number] [facility] [address] [place] [address] 03/24/2021 00:00:00 03/24/2021 17:00:26 [id number] [facility] [address] [place] [address] 08/21/2021 00:00:00 08/21/2021 12:18:48 [id number] [facility] [address] [place] [address] 02/23/2022 00:00:00 02/23/2022 12:11:05 [id number] Agueda Mcduffie MD [facility] [address] [place] [address] 10/18/2022 12:32:05 10/18/2022 13:06:08 Prediabetes 397827737 R73.03 Restart ozempic as she tolerated well and had good response to glycemic control and weight loss. She has no hx of pancreatit is or medullary thyroid cancer and is willing to trial on a GLP1 agonist therapy. She was advised to contact clinic if she experience s any nausea, vomiting or significan t thyroid pain / swelling or abdominal pain so we can discuss and discontinu e and potentiall y look to other therapy. Will trial on ozempic 0.25 mg SQ weekly x 4 weeks then increase to 0.5 mg SQ weekly with largest meal of that day as tolerated. continue metformin for insulin sensitizat ion. Hypothyroidism 34560986 E03.9 FT4 low normal and patient with fatigue, weight gain and elevated cholestero l. Trial on unithroid 25 mcg daily. She was reminded to take her unithroid on empty stomach with glass of water and wait one hour to eat or have her coffee in morning and up to 4 hours if ever taking any heartburn or reflux medication s to help optimize absorption . Discussed paleo like diet with restrictio n of GMOs to help with energy and to optimize absorption of vitamins and minerals and reduce inflammati on. Mixed hyperlipidemia 267 197168 E78.2 Continue on repatha 140 mg every 2 weeks and she is aware to restart fish oil and tg and ldl are not in ideal range. Spent up to 25 minutes preparing to see the patient (eg, review of tests), obtaining and/or reviewing separately obtained history, performing a medically appropriat e examinatio n and evaluation , counseling and educating the patient, ordering medication s, tests, along with documentin g clinical informatio n in the electronic health record, independen tly interpreti ng results and communicat ing results to the patient. RTC in 6 months. Patient was provided a handwritte n lab order which contains our fax number. If she chooses to go outside of the [facility] system to obtain labwork she was advised to provide our fax number and my informatio n to the lab she will be obtaining labwork from in order to have her labs properly forwarded over for me to review so there is no loss of follow up due to use of outside network. She was also advised to contact our clinic informing us that she has completed her labwork so we are aware we will need to reach out to the appropriat e laboratory to request her results be forwarded to us so I might have the ability to review and make further medical decision making in her case. She voiced understand ing. Health Concerns Section Related Observation LastModified by Organization Detai ls LastModified Time None Recorded Concern Status LastModified by Organization Details LastModified Time None Recorded Advance Directives Directive None Recorded Payers Encounter Date Sequence Insurance Name Policy Number Policy Mcfar[place] Covered Member ID Mcfarland Member ID Guarantor Name 10/18/2022 1 [facility] [id number] Sara Verduzco [id number] Sara Verduzco Notes Date Note Type Note Provider Name and Address Organization Details Recorded Time 10/18/2022 text/html 42 yo female com es in for follow up in management of prediabetes (A1C of 5.6%), mixed dyslipidemia and hashimotos thyroiditis. last seen in January we continued metformin and ozempic. we continued repatha every 2 weeks. we continued thyroid support. She stopped fish oil since last visit and her TG and LDL are higher- she is able to take the repatha. She did very well on the ozempic and would like to restart as he has been off since beginning of year and has gained 20 pounds back. labs from 10/09/22:TSH of 3 uIU/mlFT4 of 1.07 ng/tVerhrtny263/18 4/49/126 (better in 2021 LDL down to 84 / issues with repatha)insulin 40.5 uU/mla1C of 5.6%FT3 of 3.2 pg/MLTPO 62 IU/ml Agueda Mcduffie MD [address] [facility], [facility] [address], [place], [address], [place] [facility] [employer] 10/18/2022 14:13:14 OBGyn Episode No OBEpisode recorded.
--- OUTSIDE RECORDS SUMMARY | 2024-08-04 15:54 | XMS_ITS | Patient Health Summary ---
Author Organization [facility] Address [address] [place] [address] Care Team Providers Care Market Specialist Name Role Phone Reji Watkins MD Primary Care Provider [phone] Note from [facility],non-owned Affiliates and Associated Physician Practices is amultiple site organization consisting of ambulatory clinics and hospital sitesin [place], [place], [place] and [place]. This disclosure is being madepursuant to the Care Everywhere program and may not contain all information available regarding this patient. Last updated 18.[facility] JumpTime Allergies * Hydrocodone(Nausea and/or Vomiting) * Hmg-Coa-R Inhibitors(Swelling) * Sulfa Drugs Medications * Be aware that medications may not be up to date on this document. Alwaysverify current medications with the patient. * BusPIRone HCl (BUSPAR PO) * Citalopram Hydrobromide (CELEXA PO) * LISINOPRIL PO * albuterol HFA (PROVENTIL;VENTOLIN;PROAIR) 108 (90 BASE) MCG/ACT inhaler (Started 08/29/2016) Inhale 2 Puffs by mouth every 6 hours as needed * ATENOLOL PO * Zolpidem Tartrate (ZOLPIDEM PO) * alirocumab (PRALUENT) 150 MG/ML injection Inject 150 mg subcutaneously every 14 days * Multiple Vitamins-Minerals (MULTI VITAMIN/MINERALS) TABS Take 1 tablet by mouth once daily * topiramate (TOPAMAX) 25 MG tablet(Started 10/05/2019) Take 25 mg by mouth once daily * ondansetron, disintegrating, (ZOFRAN ODT) 4 MG tablet(Started 05/15/2019) Take 4 mg by mouth every 4 hours as needed * valACYclovir (VALTREX) 500 MG tablet(Started 12/01/2019) Take 1 tablet by mouth twice daily * vitamin D (CHOLECACIFEROL) 125 MCG (5000 UT) capsule Take 1 capsule by mouth once daily * cetirizine (ZYRTEC) 10 MG tablet Take 10 mg by mouth once daily * famotidine (PEPCID) 20 MG tablet Take 20 mg by mouth 2 times daily Active Problems Problem Noted Date Diagnosed Date [...] Comments Blood Pressure 118/62 07/25/2020 6:11 PM ART OBJECTS SALESPERSON Pulse 78 07/25/2020 6:11 PM ART OBJECTS SALESPERSON Temperature 36.9 ??C (98.5 ??F) 07/25/2020 6:11 PM CS T Respiratory Rate 20 07/25/2020 6:11 PM ART OBJECTS SALESPERSON Oxygen Saturation 98% 02/17/2020 11:39 AM CDT Inhaled Oxygen Concentration - - Weight 84.4 kg (186 lb) 02/17/2020 11:39 AM CDT Height 160 cm (5' 3 ) 02/17/2020 11:39 AM CDT Body Mass Index 32.95 02/17/2020 11:39 AM CDT Procedures * INFLUENZA A+B - POINT OF CARE (AMB)(Performed 08/29/2016) Performed for Acute URI * THYROID STIMULATING IMMUNOGLOBULIN (TSI)(Performed 09/04/2013) * TSH(Performed 09/04/2013) * T4 FREE(Performed 09/04/2013) * T3 TOTAL(Performed 09/04/2013) * T3 TOTAL(Performed 08/29/2013) * T4 FREE(Performed 08/29/2013) * TSH(Performed 08/29/2013) * THYROID PEROXIDASE ANTIBODY(Performed 07/03/2013) * T3 TOTAL(Performed 07/03/2013) * T4 FREE(Performed 07/03/2013) * TSH(Performed 07/03/2013) * NM THYROID UPTAKE AND SCAN(Performed 05/20/2013) * LAB HISTORICAL RESULTS-ONBASE(Performed 05/06/2013) * TSH(Performed 04/29/2013) * T4 FREE(Performed 04/29/2013) * T3 TOTAL(Performed 04/29/2013) Results * INFLUENZA A+B - POINT OF CARE (AMB) (08/29/2016) Influenza A Antigen Rapid Negative Negative Influenza B Antigen Rapid Negative Negative Influenza Internal Control yes NEGATIVE - POSITIVE Influenza Lot Number [id number] Influenza Expiration Date Other NASOPHARYNGEAL SWAB / Unknown 08/29/2016 Esmer Conti APRN-AUTOMOTIVE PARTS SPECIALIST LAB - POINT OF CARE ORDERABLES * THYROID STIMULATING IMMUNOGLOBULIN (TSI) (09/04/2013 9:51 AM ART OBJECTS SALESPERSON) Pathologist [facility] Thyroid Stimulating Immunoglobulin 75 0 - 139 % [facility] (BEAKER) 09/04/2013 9:51 AM ART OBJECTS SALESPERSON 09/04/2013 1:40 PM ART OBJECTS SALESPERSON Narrative [facility] (BEAKER) - 09/09/2013 9:27 AM CDT Performed at: ??01 - [facility] ??[id number] Dental Hygienist: Elliott Beyer MD, Phone: ??[phone] Frankie Baez MD LAB - CHEMISTRY [place] [facility] (BEAKER) * (ABNORMAL) TSH (09/04/2013 9:48 AM ART OBJECTS SALESPERSON) Only the most recent of4 resultswithin the time period is included. Pathologist [facility] TSH 0.012(L) 0.450 - 4.500 uIU/mL [facility] (BEAKER) Venous blood specimen (specimen) 09/04/2013 9:48 AM ART OBJECTS SALESPERSON 09/04/2013 1:40 PM ART OBJECTS SALESPERSON Narrative [facility] (BEAKER) - 09/05/2013 3:15 PM ART OBJECTS SALESPERSON Performed at: ??01 - [facility] [address] ??[id number] Dental Hygienist: Obed Grier MD, Phone: ??[phone] Frankie Baez MD LAB - CHEMISTRY [place] Performing Organization Address City/[facility]/ZIP Co de Phone Number [facility] (DEEP) * T4 FREE (09/04/2013 9:48 AM ART OBJECTS SALESPERSON) Only the most recent of4 resultswithin the time period is included. Pathologist [facility] T4 Free 1.12 0.82 - 1.77 ng/dL [facility] (BEMICHAEL) Venous blood specimen (specimen) 09/04/2013 9:48 AM ART OBJECTS SALESPERSON 09/04/2013 1:40 PM ART OBJECTS SALESPERSON Narrative [facility] (BEAKER) - 09/05/2013 3:15 PM ART OBJECTS SALESPERSON Performed at: ??01 - [facility] ??[id number] Dental Hygienist: Obed Grier MD, Phone: ??[phone] Frankie Baez MD LAB - CHEMISTRY [place] Performing Organization Address [facility] Co de Phone Number [facility] (DEEP) * T3 TOTAL (09/04/2013 9:48 AM ART OBJECTS SALESPERSON) Only the most recent of4 resultswithin the time period is included. Pathologist [facility] T3 Total 149 71 - 180 ng/dL [facility] (BEMICHAEL) Serum 09/04/2013 9:48 AM ART OBJECTS SALESPERSON 09/04/2013 1:40 PM ART OBJECTS SALESPERSON Narrative [facility] (BEAKER) - 09/05/2013 3:15 PM ART OBJECTS SALESPERSON Performed at: ??01 - [facility] [address] ??[id number] Dental Hygienist: Obed Grier MD, Phone: ??[phone] Frankie Baez MD LAB - CHEMISTRY [place] Performing Organization Address City/[facility]/ZIP Co de Phone Number [facility] (BEMICHAEL) * THYROID PEROXIDASE ANTIBODY (07/03/2013 7:43 AM ART OBJECTS SALESPERSON) Thyroid Peroxidase TPO Antibody 24 0 - 34 IU/mL [facility] (DEEP) 07/03/2013 7:43 AM ART OBJECTS SALESPERSON 07/03/2013 1:45 PM ART OBJECTS SALESPERSON Narrative [facility] (DEEP) - 07/04/2013 9:19 AM ART OBJECTS SALESPERSON Performed at: ??01 - [facility] [address] ??[id number] Dental Hygienist: Obed Grier MD, Phone: ??[phone] Frankie Baez MD LAB - CHEMISTRY [place] [facility] (DEEP) * NM THYROID UPTAKE AND SCAN (05/20/2013 11:11 AM ART OBJECTS SALESPERSON) Anatomical Region Laterality Modality Chest Other Impressions 05/20/2013 1:43 PM ART OBJECTS SALESPERSON Impression: 1. Normal size and shape of the thyroid gland, with no discernible hot or cold nodules. 2. Normal 24 hour I-123 thyroid uptake of 34.1 %. This report was approved ??by Fabio Bhatia M.D. ?? on 05/20/2013 1:30 PM . I, Dr. ADIEL MARCOS D.O. have personally reviewed and interpreted this examination/study. This report was electronically signed by ADIEL MARCOS D.O. ??on 05/20/2013 1:43 PM . Narrative 05/20/2013 1:43 PM ART OBJECTS SALESPERSON Procedure: Thyroid Uptake and Imaging Agent: 0.206 mCi of I-123 Na Iodide capsule orally History: 33-year-old female patient who as per medical history is complaining of weight gain and lethargy. Most recent labs on April 29, 2013 was TSH of 0.004 micro IU/mL and FT4 of 1.5 ng/dL. Indication for scan is evaluate for hyperthyroidism. Findings: No prior study is available for comparison. Static anterior and anterior-oblique images show normal size of thyroid lobes. There is uniform distribution of the radiotracer with slightly increased uptake in the right lobe compared to the left (likely normal variant). No discernible hot or cold nodule is noted. I-123 thyroid uptake value at 24 hours is 34.1 ( Normal limits: 15%-35%). Procedure Note Adiel Marcos DO - 09/28/2017 Procedure: Thyroid Uptake and Imaging Agent: 0.206 mCi of I-123 Na Iodide capsule orally History: 33-year-old female patient who as per medical history is complaining ofweight gain and lethargy. Most recent labs on April 29, 2013 was TSH of0.004 micro IU/mL and FT4 of 1.5 ng/dL. Indication for scan is evaluatefor hyperthyroidism. Findings: No prior study is available for comparison. Static anterior and anterior-oblique images show normal size of thyroidlobes. There is uniform distribution of the radiotracer with slightlyincreased uptake in the right lobe compared to the left (likely normalvariant). No discernible hot or cold nodule is noted. I-123 thyroid uptake value at 24 hours is 34.1 ( Normallimits: 15%-35%). IMPRESSION Impression: 1. Normal size and shape of the thyroid gland, with no discernible hot orcold nodules. 2. Normal 24 hour I-123 thyroid uptake of 34.1 %. This report was approved by Fabio Bhatia M.D. on 05/20/2013 1:30 PM. I, Dr. ADIEL MARCOS D.O. have personally reviewed and interpreted thisexamination/study. This report was electronically signed by ADIEL MARCOS D.O. on05/20/2013 1:43 PM . Historical Provider NM ORDERABLES * LAB HISTORICAL RESULTS-ONBASE (05/06/2013) 05/06/2013 Narrative [facility] - 05/14/2013 12:50 PM ART OBJECTS SALESPERSON Historical Provider LAB - CHEMISTRY O RDERABLES [facility] [address] Care Teams Market Specialist Relationship Specialty Start Date End Date Reji Watkins MD [address] [place] [address] PCP - General Family Medicine 08/29/16
--- OUTSIDE RECORDS SUMMARY | 2024-08-04 15:54 | XMS_ITS | Referral Summary ---
Author Organization [facility] Physician Office Building [address] [place] [phone] Care Team Providers Care Senior Business Development Manager Name Role Phone Ivette Pearce NP Primary Care Provider Allergies Active Allergy Reactions Criticality Noted Date Comments Hydrocodone Nausea & Vomiting,Vomiting Low 08/17/2019 Rdaieol-Giy-Bmj Reductase Inhibitors Other (See comments) High 10/31/2016 [...] Active Active Problems No known active problems Social History Tobacco Use Types Packs/Day Years [...] on file Legal Sex Female 12:48 PM NUT FORMER Gender Identity Female 03/08/2021 8:54 AM CDT Sexual Orientation Not on file Last Filed Vital Signs Vital Sign Reading Time Taken Comments Blood Pressure 112/84 05/21/2023 2:30 PM NUT FORMER Pulse 94 05/21/2023 2:30 PM NUT FORMER Temperature - - Respiratory Rate 14 05/21/2023 2:30 PM NUT FORMER Oxygen Saturation 97% 05/21/2023 2:30 PM NUT FORMER Inhaled Oxygen Concentration - - Weight 77.8 kg (171 lb 8.3 oz) 01/29/2022 2:39 P M CDT Height 160 cm (5' 3 ) 01/29/2022 2:39 PM CDT Body Mass Index 30.38 01/29/2022 2:39 PM CDT Plan of Treatment Not on file Insurance CHOICE OOS CHOICE PLUS Care Teams Senior Business Development Manager Relationship Specialty Start Date End Date Ivette Pearce NP [address] [place] [id number] PCP - General Nurse Practitioner 12/16/20
--- OUTSIDE RECORDS SUMMARY | 2024-08-04 15:55 | XMS_ITS | Encounter Summary ---
Author Organization [facility] Address [facility] [place] [address] Care Team Providers Care Flower Grower Name Role Phone Ivette Pearce GIUSEPPE Primary Care Provider [phone] Encounter Details Date Type Department Care Team (Late st Contact Info) Description 04/03/2023 iWeebot Message Enc [facility] Family Medicine - [place] [address], [address] [place] [address] [place] [id number] [address] [address] [place] Social History Tobacco Use Types Packs/Day Years [...] Date Recorded Patient Health Questionnaire-2 Score 2 09/05/2022 Comments No Sex and Gender Information Value Date Recorded Sex Assigned at Not on file Legal Sex Female 8:11 PM CDT Gender Identity Not on file Sexual Orientation Not on file documented as of this encounter Progress Notes * Griselda Younger MA - 04/04/2023 9:57 AM CDT Good Morning Aishwarya, It looks like you prescribed the medication so the pharmacy should contact you directly. If they donot please let me know. * GIUSEPPE Tavarez - 04/04/2023 9:44 AM CDT Okay to send pa to dr mack documented in this encounter Plan of Treatment Upcoming Encounters Date Type Department Care Team (Late st Contact Info) Description 08/17/2024 8:40 AM BOILER TESTER Office Visit [facility] Family & Internal Medicine - [address] [phone] Ivette Pearce FNP [address] [place] [address] 02/19/2025 9:00 AM CDT Office Visit [facility] [phone] Carine Roberts MD [facility] [address] [place] [address] documented as of this encounter Visit Diagnoses Not on filedocumented in this encounter Additional Health Concerns Assessment Noted Time PHQ-9 Depression Total Score: 9 09/06/19 23 8:33 AM BOILER TESTER documented as of this encounter Care Teams Flower Grower Relationship Specialty Start Date End Date Ivette Pearce FNP [address] [place] [address] PCP - General Nurse Practitioner Family 07/08/18 documented as of this encounter
--- OUTSIDE RECORDS SUMMARY | 2024-08-04 15:55 | XMS_ITS | Encounter Summary ---
Author Organization [facility] Address [address] [place] [address] Care Team Providers Care Jig Grinder Set Up Operator Name Role Phone Ivette Pearce Primary Care Provider [phone] Encounter Details Date Type Department Care Team (Late Contact Info) Description 06/13/2022 CrepeGuyst Message Enc [facility] Family & Internal [address] [address] Ivette Pearce FNP [facility] [place] [place], [place] [id number] [employer] Social History Tobacco Use Types Packs/Day Years Used Date Smoking Tobacco: Former Cigarettes 0.5 15 0 02/25/1994 - 02/25/2009 Smokeless Tobacco: Never Alcohol Use Standard Drinks/Week Comments Yes 0 (1 standard drink = 0.6 oz pur e alcohol) occ AUDIT-C Answer Date Recorded Frequency of Alcohol Consumption Monthly or less 08/18/2018 Average Number of Drinks Not on file 019 Frequency of Binge Drinking Not on file 08/01 PHQ-2 Answer Date Recorded PHQ-2 Score - If the patient scores above 3, please move on to questions 3-9 0 10/13/2021 Comments No Sex and Gender Information Value Date Recorded Sex Assigned at Not on file Legal Sex Female 8:11 PM CDT Gender Identity Not on file Sexual Orientation Not on file documented as of this encounter Plan of Treatment Upcoming Encounters Date Type Department Care Team (Late Contact Info) Description 08/17/2024 8:40 AM SEAM STEAMER Office Visit [facility] Family & Internal Medicine - [address] [phone] Ivette Pearce FNP [address] [place] [address] 02/19/2025 9:00 AM CDT Office Visit [facility] [phone] Carine Roberts MD [facility] [address] [facility] [place] [address] documented as of this encounter Visit Diagnoses Not on filedocumented in this encounter Additional Health Concerns Assessment Noted Time PHQ-9 Depression Total Score: 6 10/11/19 21 8:35 AM CDT documented as of this encounter Care Teams Jig Grinder Set Up Operator Relationship Specialty Start Date End Date Ivette Pearce FNP [address] [place] [address] PCP - General Nurse Practitioner Family 07/08/18 documented as of this encounter
--- OUTSIDE RECORDS SUMMARY | 2024-08-04 15:55 | XMS_ITS | Encounter Summary ---
Author Organization [facility] Address [address] [place] [address] Care Team Providers Care Scheduling Administrator Name Role Phone Ivette Pearce GIUSEPPE Primary Care Provider [phone] Encounter Details Date Type Department Care Team (Late Contact Info) Description 02/19/2020 Prep for Procedure [facility] [place], [place] [address] Rajendra Walker MD [address] [phone] Social History Tobacco Use Types Packs/Day Years Used Date Smoking Tobacco: Former Cigarettes 0.5 15 Smokeless Tobacco: Never Alcohol Use Standard Drinks/Week Comments Yes 0 (1 standard drink = 0.6 oz pur e alcohol) occ AUDIT-C Answer Date Recorded Frequency of Alcohol Consumption Monthly or less 08/18/2018 Average Number of Drinks Not on file 019 Frequency of Binge Drinking Not on file 08/01 PHQ-2 Answer Date Recorded PHQ-2 Score 0 08/17/2019 Comments No Sex and Gender Information Value Date Recorded Sex Assigned at Not on file Legal Sex Female 8:11 PM CDT Gender Identity Not on file Sexual Orientation Not on file COVID-19 Exposure Response Date Recorded In the last month, have you been in contact with someone who was confirmed or suspected to have Coronavirus / COVID-19? No / Unsure 02/22/2020 10:24 AM CDT documented as of this encounter Plan of Treatment Upcoming Encounters Date Type Department Care Team (Late Contact Info) Description 08/17/2024 8:40 AM INSULATION HELPER Office Visit [facility] Family & Internal Medicine - [place] [address] [place] [phone] Lucyravindra Ivette, GIUSEPPE [address] [place] [address] 02/19/2025 9:00 AM CDT Office Visit [facility] [phone] [place] [address] Carine Roberts MD [address] [facility] [address] [facility] [place] [address] documented as of this encounter Results * PRE-SURGICAL/PRE-PROCEDURE CORONAVIRUS (COVID 19) (02/19/2020 11:40 AM CDT) CORONAVIRUS SARS COV 2 PCR (RESP) NOT DETECTED NOT DETECTED 02/20/2020 3:37 PM CDT [facility] Comment: A Not Detected (negative) test result for this test means that SARS- CoV-2 RNA was not present in the specimen above the limit of detection. A negative result does not rule out the possibility of COVID-19 and should not be used as the sole basis for treatment or patient management decisions. ??If COVID-19 is still suspected, based on exposure history together with other clinical findings, re-testing should be considered in consultation with public health authorities. Laboratory test results should always be considered in the context of clinical observations and epidemiological data in making a final diagnosis and patient management decisions. Please review the Fact Sheets and FDA authorized labeling available for health care providers and patients using the following websites: https://www.Piictu.com/home/Covid-19/HCP/Quest[employer]/fact- sheet.html https://www.Piictu.NeedFeed/home/Covid-19/Patients/ Quest[employer]/fact-sheet.html This test has been authorized by the FDA under an Emergency Use Authorization (EUA) for use by authorized laboratories. Due to the current public health emergency, [employer] is receiving a high volume of samples from a wide variety of swabs and media for COVID-19 testing. In order to serve patients during this public health crisis, samples from appropriate clinical sources are being tested. Negative test results derived from specimens received in non-commercially manufactured viral collection and transport media, or in media and sample collection kits not yet authorized by FDA for COVID-19 testing should be cautiously evaluated and the patient potentially subjected to extra precautions such as additional clinical monitoring, including collection of an additional specimen. Methodology: ??Nucleic Acid Amplification Test (NAAT) includes PCR or TMA Additional information about COVID-19 can be found at the [employer] website: www.ybuy/Covid19. Test performed at [facility] [address] [place], [place] ??[address] Director: JAZMIN JACKSON DO,MPH NASOPHARYNGEAL SWAB / Unknown 02/19/2020 11:40 AM CDT us Rajendra Walker MD MICROBIOLOGY - GENERAL ORDERABLE S Final Result [facility] [id number] [place] [id number] documented in this encounter Visit Diagnoses Diagnosis AP (abdominal pain)- Primary Abdominal pain, unspecified site documented in this encounter Additional Health Concerns Infection Onset Date Last Indicated Resolved Time COVID-19 Rule Out 02/19/2020 02/19/2020 02/20/2020 3:38 PM CDT COVID-19 Rule Out 02/29/2020 02/29/2020 03/01/2020 11:16 PM CDT COVID-19 Rule Out 07/05/2021 07/05/2021 07/12/2021 12:33 AM INSULATION HELPER Assessment Noted Time PHQ-9 Depression Total Score: 2 08/17/19 20 12:00 PM INSULATION HELPER documented as of this encounter Care Teams Scheduling Administrator Relationship Specialty Start Date End Date Ivette Pearce FNP [address] [place] [address] PCP - General Nurse Practitioner Family 07/08/18 documented as of this encounter
--- OUTSIDE RECORDS SUMMARY | 2024-08-04 15:55 | XMS_ITS | Encounter Summary ---
Author Organization [facility] Address [facility] [place] [address] Care Team Providers Care Molder Vacuum Name Role Phone Ivette Pearce GIUSEPPE Primary Care Provider [phone] Encounter Details Date Type Department Care Team (Late st Contact Info) Description 02/26/2020 Prep for Procedure [place] Pre-Admission Testing [facility] [place] [address] David Alcala, MIRI [address] [facility] , [address] [address] Social History Tobacco Use Types Packs/Day Years [...] st Contact Info) Description 08/17/2024 8:40 AM DRESSING ROOM PORTER Office Visit [facility] Family & Internal Medicine - [place] [address] [place] [phone] Ivette PearceGIUSEPPE [address] [place] [address] 02/19/2025 9:00 AM CDT Office Visit [facility] [phone] Carine Roberts MD [address] [facility] [address] [facility] [place], [place] [phone] documented as of this encounter Results * PRE-SURGICAL/PRE-PROCEDURE CORONAVIRUS (COVID 19) (02/29/2020 11:25 AM CDT) CORONAVIRUS SARS COV 2 PCR (RESP) NOT DETECTED NOT DETECTED 03/01/2020 11:15 PM CDT [facility] Comment: A Not Detected (negative) test result [...] providers and patients using the following websites: https://www.[employer]/home/Covid-19/HCP/NAAT/fact-sheet2 https://www.[employer]/home/Covid-19/Patients/NAAT/ fact-sheet2 This test has been authorized by the FDA under an Emergency Use Authorization (EUA) for use by authorized laboratories. Due to the current public health emergency, [facility] is receiving a high volume of samples [...] about COVID-19 can be found at the [facility] website: www.[employer]/Covid19. Test performed at [facility] [place] [id number] [place] [address] ??[phone] Director: JAZMIN JACKSON DO,MPH NASOPHARYNGEAL SWAB / Unknown 02/29/2020 11:25 AM CDT us David Alcala DPM MICROBIOLOGY - GENERAL ORDERAB LES Final Result [facility] [id number] [place] [address] documented in this encounter Visit Diagnoses Diagnosis Preop examination- Primary Preoperative examination, unspecified documented in this encounter Additional Health Concerns Infection Onset Date Last Indicated Resolved Time COVID-19 Rule Out 02/29/2020 02/29/2020 03/01/2020 11:16 PM CDT COVID-19 Rule Out 07/05/2021 07/05/2021 07/12/2021 12:33 AM DRESSING ROOM PORTER Assessment Noted Time PHQ-9 Depression Total Score: 2 08/17/19 20 12:00 PM DRESSING ROOM PORTER documented as of this encounter Care Teams Molder Vacuum Relationship Specialty Start Date End Date Ivette Pearce FNP [address] [place] [address] PCP - General Nurse Practitioner Family 07/08/18 documented as of this encounter
--- OUTSIDE RECORDS SUMMARY | 2024-08-04 15:55 | XMS_ITS | Encounter Summary ---
Author Organization [facility] Address [facility] [place] [address] Care Team Providers Care Material Handling Technician Name Role Phone Ivette Pearce Primary Care Provider [phone] Encounter Details Date Type Department Care Team (Late st Contact Info) Description 04/02/2023 Coinfloort Message Enc [facility] Family Medicine - [place] [address], [address] [place] [address] [place] [address] [address] [place] [address] Riya Social History Tobacco Use Types Packs/Day Years [...] as of this encounter Progress Notes * GIUSEPPE [place] - 04/03/2023 10:55 AM CDT We can see if dr mack would like to see her for weight loss options. documented in this encounter Plan of Treatment Upcoming Encounters Date Type Department Care Team (Late st Contact Info) Description 08/17/2024 8:40 AM CATERER HELPER Office Visit [facility] Family & Internal Medicine - [address] [phone] Ivette Pearce FNP [address] [place] [address] 02/19/2025 9:00 AM CDT Office Visit [facility]-[address] [phone] Carine Roberts MD [facility] [address] [place] [address] documented as of this encounter Visit Diagnoses Not on filedocumented in this encounter Additional Health Concerns Assessment Noted Time PHQ-9 Depression Total Score: 9 09/06/19 23 8:33 AM CATERER HELPER documented as of this encounter Care Teams Material Handling Technician Relationship Specialty Start Date End Date Ivette Pearce FNP [address] [place] [address] PCP - General Nurse Practitioner Family 07/08/18 documented as of this encounter
--- OUTSIDE RECORDS SUMMARY | 2024-08-04 15:55 | XMS_ITS | Encounter Summary ---
Author Organization [facility] Address [address] [place] [address] Care Team Providers Care Parts Advisor Name Role Phone Ivette Pearce Primary Care Provider Encounter Details Date Type Department Care Team (Late Contact Info) Description 08/07/2022 Evergagehart Message Enc [facility] Family & Internal [address] [phone] Ivette Pearce FNP [facility] [place], [place] [phone] Ozempic Social History Tobacco Use Types Packs/Day Years [...] (Late Contact Info) Description 08/17/2024 8:40 AM SERGING MACHINE OPERATOR Office Visit [facility] Family & Internal Medicine - [address] [phone] Ivette Pearce FNP [address] [place] [address] 02/19/2025 9:00 AM CDT Office Visit [facility]-[address] [phone] Carine Roberts MD [facility] [address] [facility] [place] [address] documented as of this encounter Visit Diagnoses Not on filedocumented in this encounter Additional Health Concerns Assessment Noted Time PHQ-9 Depression Total Score: 6 10/11/19 21 8:35 AM CDT documented as of this encounter Care Teams Parts Advisor Relationship Specialty Start Date End Date Ivette Pearce FNP [address] [place] [address] PCP - General Nurse Practitioner Family 07/08/18 documented as of this encounter
--- OUTSIDE RECORDS SUMMARY | 2024-08-04 15:55 | XMS_ITS | Encounter Summary ---
Author Organization [facility] Address [address] [place] [address] Care Team Providers Care Table Assembler Metal Name Role Phone Ivette Pearce Primary Care Provider [phone] Encounter Details Date Type Department Care Team (Late Contact Info) Description 12/26/2022 ProntoFormshart Message Enc [facility] Medical [facility] [address] [place], [place] [address] [place], [facility] Provider Air Quality Message Social History Tobacco Use Types Packs/Day Years [...] (Late Contact Info) Description 08/17/2024 8:40 AM MEAT PROCESSOR Office Visit [facility] Medical [facility] Family & Internal Medicine - [place] [address] [place] [phone] Ivette Pearce FNP [facility] [place] [address] 02/19/2025 9:00 AM CDT Office Visit [facility] [address] [place] [address] Carine Roberts MD [facility] [address] [place] [address] documented as of this encounter Visit Diagnoses Not on filedocumented in this encounter Additional Health Concerns Assessment Noted Time PHQ-9 Depression Total Score: 9 09/06/19 23 8:33 AM MEAT PROCESSOR documented as of this encounter Care Teams Table Assembler Metal Relationship Specialty Start Date End Date Ivette Pearce FNP [address] [place] [address] PCP - General Nurse Practitioner Family 07/08/18 documented as of this encounter
--- OUTSIDE RECORDS SUMMARY | 2024-08-04 15:55 | XMS_ITS | Encounter Summary ---
Author Organization [facility] Address [address] [place] [address] Care Team Providers Care Metal Building Assembler Name Role Phone Ivette Pearce Primary Care Provider [phone] Encounter Details Date Type Department Care Team (Late Contact Info) Description 01/22/2020 MyChart Message Enc [facility] Family & Internal Medicine [facility] [address] [place] [address] Ivette Pearce FNP [address] [place], [place] [phone] Other Social History Tobacco Use Types Packs/Day Years [...] have Coronavirus / COVID-19? No / Unsure 01/14/2020 3:46 PM CDT documented as of this encounter Plan of Treatment Upcoming Encounters Date Type Department Care Team (Late Contact Info) Description 08/17/2024 8:40 AM DIESEL ENGINE PIPE FITTER Office Visit [facility] Family & Internal Medicine - [address] [phone] Ivette Pearce FNP [address] [place] [address] 02/19/2025 9:00 AM CDT Office Visit [facility]-[address] [phone] Carine Roberts MD [address] [facility] [address] [place] [address] documented as of this encounter Visit Diagnoses Not on filedocumented in this encounter Additional Health Concerns Infection Onset Date Last Indicated Resolved Time COVID-19 Rule Out 02/19/2020 02/19/2020 02/20/2020 3:38 PM CDT COVID-19 Rule Out 02/29/2020 02/29/2020 03/01/2020 11:16 PM CDT COVID-19 Rule Out 07/05/2021 07/05/2021 07/12/2021 12:33 AM DIESEL ENGINE PIPE FITTER Assessment Noted Time PHQ-9 Depression Total Score: 2 08/17/19 20 12:00 PM DIESEL ENGINE PIPE FITTER documented as of this encounter Care Teams Metal Building Assembler Relationship Specialty Start Date End Date Ivette Pearce FNP [address] [place] [address] PCP - General Nurse Practitioner Family 07/08/18 documented as of this encounter
== END 2024-08-04 15:51 | disposition home or self-care (01) ==
LOC: ANHIMG 15:52
PROVIDERS: PCP Nurse Practitioner Family; Visit Provider Obstetrics & Gynecology
DX: Z12.31 Encounter for screening mammogram for malignant neoplasm of breast (principal)
CPT/HCPCS: 77063; 77067

== ENCOUNTER 2024-08-24 16:27 | Outpatient (CLI) | payer BC, SELFPAY ==
--- NOTE | ~2024-08-24 | US_ITS ---
EXAMINATION: US thyroid DATE: 08/24/2024 16:40 INDICATION: Thyroid nodules TECHNIQUE: Multiple ultrasound images of the thyroid were obtained. COMPARISON: 01/28/2021 FINDINGS: The right thyroid lobe measures 4.9 x 1.5 x 1.2 cm. The left thyroid lobe measures 3.5 x 0.9 x 1.0 cm. The isthmus measures 0.2cm in anterior to posterior dimension. There is normal echotexture and echogenicity throughout the thyroid gland. No discrete nodules identified. Normal vascular flow is present. IMPRESSION: Unremarkable sonographic evaluation of the thyroid gland, as detailed above. Reviewed, dictated and finalized at location A. L SERVICE SUPERVISOR
== END 2024-08-24 16:28 | disposition home or self-care (01) ==
LOC: MICIMG 16:28
PROVIDERS: PCP Nurse Practitioner Family; Visit Provider Nurse Practitioner Family
DX: E04.2 Nontoxic multinodular goiter (principal); E06.1 Subacute thyroiditis
CPT/HCPCS: 76536